=== PATIENT | female | born 1960 | race Caucasian/White ===

== ENCOUNTER 2023-03-24 15:57 | Inpatient (IN) ==
--- NOTE | 2023-03-24 16:26 | ED Triage Note ---
Date of Service March 24, 2023 History of Present Illness This patient was briefly evaluated while in triage. An abbreviated physical exam was performed. This patient is a 62-year-old Female who presents to the ED for evaluation of sciatica pain that started Wednesday. Pt. was seen here on Wednesday and states "they did not do anything." Pt. states she had 300mg gabapentin at the PCP office 1 hour ago. Physical Exam VITALS: Vitals are noted on the nurse's note and reviewed by myself. GENERAL: This is a 62 year old female, in no acute distress, nondiaphoretic, well-developed well-nourished. SKIN: No obvious rashes, edema, erythema HEAD: Normocephalic atraumatic. EYES: Conjunctivae without injection, sclerae without icterus. NECK: No JVD. LUNGS: No retractions or accessory muscle use. MUSCULOSKELETAL: Pt. threw herself from wheelchair to floor while nursing staff obtaining vital signs, noting laying on the floor is the only way she is able to be comfortable. Had no difficulty getting self into that position. NEURO: Patient was alert and oriented to person place and time. No focal neurological deficits. Initial orders for labs and / or imaging were placed and patient was placed in the waiting area until a bed is available. Please see further documentation for the full ED course. MDM / Impression Impression Impression: Back pain
[2023-03-24] MEDS ORDERED: oxyCODONE HCL IR 5 MG TAB (IMMEDIATE RELEASE) PO STA (16:27)
[2023-03-24] MEDS ORDERED: ACETAMINOPHEN 500 MG TAB PO STA (16:27)
[2023-03-24] MEDS ORDERED: ONDANSETRON 4 MG OD TAB PO STA (16:27)
[2023-03-24] MEDS ORDERED: KETOROLAC TROMETHAMINE 60 MG/2 ML VIAL IM STA (16:27)
[2023-03-24] MEDS ORDERED: CYCLOBENZAPRINE HCL 10 MG TAB PO STA (16:27)
--- NOTE | 2023-03-24 17:20 | CT Scan Report ---
CT lumbar spine wo con HISTORY: 62 years-old Female Back Pain kilo back pain without reported trauma COMPARISON: Lumbar spine radiographs 08/30/2022, 05/15/2012. TECHNIQUE: Multiple axial CT images of the lumbar spine were obtained without the use of IV contrast. A dose lowering technique was used consistent with the principals of CONOR. FINDINGS: Minimal superior endplate compression at L5 of less than 20% is new from the 2012 comparison. Moderat e multilevel spondylitic spurring and facet arthrosis. Posterior disc osteophyte complex at L2-L3. No definite acute fracture, subluxation or retropulsion identified. Moderate degeneration of the SI marina nts. The imaged intraabdominal and intrapelvic structures demonstrate no acute abnormality. L1-L2: Posterior annular disc bulge with ligamentum flavum thickening and severe facet arthrosis. Min imal central canal stenosis. Moderate with moderate left foraminal narrowing. L2-L3: Posterior disc osteophyte complex with ligamentum flavum thickening and moderate facet arthros is. Mild/moderate central canal stenosis with moderate to severe left and hmjs-fr-equnxoss right neur al foraminal narrowing. L3-L4: Posterior annular disc bulge with ligamentum flavum thickening and severe facet arthrosis. Mod erate central canal stenosis with severe left and moderate right foraminal narrowing. L4-L5: Posterior annular disc bulge with ligamentum thickening and moderate facet arthrosis. Small ce ntral disc protrusion. Nnnt-ck-ciydrlin central canal stenosis with moderate left and iefp-fk-dxhsyyg e right neural foraminal narrowing. L5-S1: Tiny posterior renal disc bulge with moderate facet arthrosis. Mild right with moderate left f oraminal narrowing. IMPRESSION: 1. No definite acute fracture or subluxation. 2. Less than 20% superior endplate compression at L5 is technically age indeterminate however is favo red to be chronic. 3. Discogenic degeneration with spondylotic spurring and facet arthrosis as above. ACT 112: Negative or not required by law. The above report was generated using voice recognition software. It may contain grammatical, syntax o r spelling errors. Electronically signed by: David Caraballo M.D. 03/24/2023 5:19 PM
[2023-03-24 17:38] LABS: Basophils # (auto) 0.05 K/uL (0.00-0.20); Basophils % (auto) 0.5 %; Eosinophils # (auto) 0.03 K/uL (0.00-0.50); Eosinophils % (auto) 0.3 %; Hematocrit (blood only) 45.6 % (37.0-47.0); Hemoglobin 16.8 g/dl (12.0-16.0); Immature Granulocytes # (auto) 0.05 K/uL (0.01-0.20); Immature Granulocytes % (auto) 0.5 %; Lymphocytes # (auto) 1.94 K/uL (1.20-3.40); Lymphocytes % (auto) 19.3 %; Mean Corpuscular Hemoglobin 31.1 pg (25.0-34.0); Mean Corpuscular Hgb Conc 36.8 g/dL (32.0-36.0); Mean Corpuscular Volume 84.3 fL (80.0-100.0); Monocytes # (auto) 0.96 K/uL (0.11-0.59); Monocytes % (auto) 9.5 %; Neutrophils # (auto) 7.03 K/uL (1.40-6.50); Neutrophils % (auto) 69.9 %; Platelet Count 298 K/uL (130-400); RDW Coefficient of Variation 12.3 % (11.5-14.5); RDW Standard Deviation 37.1 fL (36.4-46.3); Red Blood Count 5.41 M/uL (4.20-5.40); White Blood Count 10.06 K/ul (4.8-10.8)
[2023-03-24 17:56] LABS: Alanine Aminotransferase 18 U/L (7-52); Albumin Globulin Ratio 1.5 (0.9-2); Albumin Level 4.5 gm/dl (3.4-5.0); Alkaline Phosphatase 111 U/L (34-104); Anion Gap 12 (3-11); Aspartate Aminotransferase 16 U/L (13-39); BUN Creatinine Ratio 21.7 (10-20); Bilirubin,Total 1.2 mg/dl (0.2-1.0); Blood Urea Nitrogen 20 mg/dl (6-23); Calcium 9.7 mg/dl (8.6-10.3); Carbon Dioxide 22 mmol/L (21-32); Chloride 103 mmol/L (98-107); Est GFR (African American) 77.3 ml/min; Est GFR (Non-African American) 66.7 ml/min; Globulin 3.1 gm/dl (2.5-4.0); Glucose 216 mg/dl (70-99(Fasting)); Potassium 3.5 mmol/L (3.5-5.1); Sodium 137 mmol/L (136-145); Total Protein 7.6 gm/dl (6.0-8.3)
--- NOTE | 2023-03-24 19:05 | CT Scan Report ---
CT abd pelvis wo con CLINICAL HISTORY: low back pain TECHNIQUE: Helical axial images of the abdomen and pelvis were obtained. Automated dose lowering tech niques and/or adjustment according to patient size were utilized for this exam. This exam was perfor med without intravenous contrast. CT DOSE: 1417.02 mGy.cm COMPARISON: Comparison is made to CT abdomen pelvis 9 01/06/2020 FINDINGS: Lower chest: No acute abnormality. Liver: Unremarkable. No focal lesions are seen. Gallbladder and biliary tree: No calcified gallstones. Normal caliber wall. No intra- or extrahepatic biliary ductal dilation. Pancreas: Unremarkable, no focal lesions. Spleen: Unremarkable. Adrenals: Unremarkable. Kidneys and ureters: Unremarkable. Bladder: Unremarkable. Reproductive organs: Unremarkable. Bowel: Postsurgical changes are seen in the colon. Lymph nodes Retroperitoneal: Unremarkable. Pelvic: Unremarkable. Mesenteric: Unremarkable. Peritoneum: Normal. Vessels: Unremarkable. Abdominal wall: A supraumbilical fat-containing hernia noted. Bones: Degenerative changes in the visualized spine. IMPRESSION: No acute abnormalities to explain back pain. ACT 112: Negative or not required by law. Electronically signed by: Jose García M.D. 03/24/2023 7:03 PM
--- NOTE | 2023-03-24 22:17 | Emergency Department Note ---
Impression & Plan Back pain, Lumbar radiculopathy, Hypertension ED Provider Note ED Provider Note NAME: KEITH MCCAIN AGE:62 SEX: Female : 1960 ARRIVES VIA: private vehicle INFORMANT: Patient ED PROVIDER(s): Ivonne Torres DO CHIEF COMPLAINT: back pain HPI: This is a 62-year-old female presents emergency department due to concern for back pain which started over the weekend. Patient does have a prior history of back and neck problems and has previously had surgery from Dr. Banda. Patient denies any coming fevers or chills. She denies any change in urine or stools. She denies any saddle anesthesia. Patient states she has had prior sciatica on the right, however this time she feels pain on the left. She states the pain is worse in her left hip and left thigh. She states she was seen and evaluated yesterday and given Percocet, Flexeril, and steroids. She then followed up with her PCP today and was given additional gabapentin. Patient states she is taking all of this and it is not helping. She states she was hoping to try and get pain medication and follow-up with her chiropractor as well as with Dr. Banda but the pain is so severe that she has been unable to walk. PAST MEDICAL HISTORY:See Below PAST SURGICAL HISTORY:See Below FAMILY HISTORY:See Below SOCIAL HISTORY:See Below HOME MEDICATIONS:See Below ALLERGIES:See Below VITALS:See Below PHYSICAL EXAMINATION: GENERAL: alert, uncomfortable appearing, well nourished, mild distress, non- toxic EYE EXAM: normal conjunctiva, PERRL and EOM's grossly intact OROPHARYNX: no exudate, no erythema, lips, buccal mucosa, and tongue normal and mucous membranes are moist NECK: supple, no nuchal rigidity, no adenopathy, non-tender LUNGS: Clear to auscultation. Normal chest wall mechanics, no w/r/r HEART: no murmurs, S1 normal and S2 normal ABDOMEN: abdomen soft, non-tender, normo-active bowel sounds, no masses, no rebound or guarding. BACK: Back is symmetrical on inspection and there is no deformity, no midline tenderness, no CVA tenderness. SKIN: no rashes, petechiae, orbruising UPPER EXTREMITIES: upper extremities are grossly normal. FROM, nml pulses b/l. LOWER EXTREMITIES: No pitting edema. FROM, nml pulses b/l. No pain with palpation over the left hip, anterior proximal left lower extremity is tender with palpation. No other evidence of trauma or deformity to the lower extremities. NEURO EXAM: Normal sensorium, cranial nerves II-XII grossly intact, normal speech, no facial droop,nogross weakness of arms, no gross weakness of legs. Gross sensation intact. No ataxia. Vital Signs: reviewed and remarkable Differential Diagnosis: lumbar radiculopathy, muscle strain, facture, cauda equina, mass, disc herniation, UTI, renal colic, as well as others were considered MEDICAL DECISION MAKING: This is a 62-year-old female who presents due to concern for worsening back pain despite recent evaluation and medications being given here as well as additional medications by her PCP. Patient afebrile and vital signs stable. Patient was sent for CT imaging prior to my evaluation. I did review these results with her at bedside. Patient given additional IV medications including alternative muscle relaxer, IV Dilaudid, IV fluids, and Lidoderm patch. Patient did have some improvement but still was unable to walk. Due to concern for pain and inability to control symptoms on oral medication she can take at home, case discussed with hospitalist team for additional evaluation and management. UA was pending at the time of this discussion however the low suspicion for occult UTI/pyelonephritis. Patient was noted to have significant hypertension here, I feel this is mostly tied to her pain. I do not suspect occult vascular etiology of her back and leg pain. Consultation(s): 0055: Discussed with Dr. Charlton, [facility] hospitalist team. UA pending at this time. ER Treatment Provided: See below Diagnostics Interpreted By Me: -ECG: [] -Cardiac Monitoring: An order was placed for continuous cardiac monitoring. The monitor shows a rate of 66 with normal sinus rhythm. -Laboratory studies: As stated above and show below. -Imaging studies: [] Triage Nursing Note Reviewed Prior/Outside Records Reviewed Past Med/Surg History Medical History ADHD Anxiety Depression Diabetes Hypertension Surgical History History of partial colectomy S/P cervical spinal fusion Social History Smoking Status: Never smoker Tobacco Type: Cigarettes Preferred Language: Bulgarian Hearing Ability: Normal current occupational status: employed Feels Safe at Home: Yes Allergies Allergies Allergy/AdvReac Type Severity Reaction Status Date / Time amoxicillin Allergy Intermediate RASH Verified 03/24/23 23:13 Sulfa (Sulfonamide Allergy Intermediate Rash Verified 03/24/23 23:13 Antibiotics) oxycodone AdvReac Intermediate N&V Verified 03/24/23 23:13 Home Meds Home Medications Medication Instructions Recorded Confirmed amlodipine 10 mg tablet 10 mg PO QAM 03/24/23 03/24/23 bupropion HCl 150 mg 24 hr tablet, 150 mg PO QAM 03/24/23 03/24/23 extended release cyclobenzaprine 5 mg tablet 5 mg PO TID 03/24/23 03/24/23 dextroamphetamine-amphetamine 10 10 mg PO QPM PRN ADHD SYMPTOMS 03/24/23 03/24/23 mg tablet dextroamphetamine-amphetamine ER 50 mg PO QAM 03/24/23 03/24/23 25 mg 24hr capsule,extend release diazepam 5 mg tablet 5 - 10 mg PO DAILY PRN SEVERE 03/24/23 03/24/23 ANXIETY escitalopram oxalate 20 mg tablet 20 mg PO QAM 03/24/23 03/24/23 glimepiride 2 mg tablet 2 mg PO DAILYBB 03/24/23 03/24/23 prednisone 20 mg tablet 40 mg PO DAILY 03/24/23 03/24/23 Previous Rx's Medication Instructions Recorded methylprednisolone 4 mg tablets in 4 mg PO DIRECTED #21 ea 03/21/23 a dose pack (Methylpred DP) Results & Data (ED) Vital Signs Vital Signs - 24 hr 03/24/23 16:24 03/24/23 22:01 03/24/23 22:01 Temperature 36.6 C 36.8 C Temperature Source Temporal Artery Scan Oral Pulse Rate 77 66 Pulse Rate [Apical] 66 Pulse Rhythm Regular Pulse Rhythm [Apical] Regular Pulse Strength [Apical] Normal Respiratory Rate 16 20 19 Respiratory Effort / Characteristics Non-Labored Non-Labored Spontaneous Respiratory Depth Normal Normal Respiratory Pattern Regular Blood Pressure 180/80 H Blood Pressure [Right Arm] 192/98 H Blood Pressure Mean 113 Blood Pressure Mean [Right Arm] 129 Blood Pressure Position [Right Arm] Lying Pulse Oximetry 99 97 98 Oxygen Delivery Method Room Air Room Air Room Air Sepsis Recent Fever Within 48 Hours No Sepsis New/Unexplained Change in Mental Status No Sepsis Action Taken by Nursing No Action Required 03/24/23 22:06 Temperature Temperature Source Pulse Rate 68 Pulse Rate [Apical] Pulse Rhythm Pulse Rhythm [Apical] Pulse Strength [Apical] Respiratory Rate Respiratory Effort / Characteristics Respiratory Depth Respiratory Pattern Blood Pressure Blood Pressure [Right Arm] Blood Pressure Mean Blood Pressure Mean [Right Arm] Blood Pressure Position [Right Arm] Pulse Oximetry Oxygen Delivery Method Sepsis Recent Fever Within 48 Hours Sepsis New/Unexplained Change in Mental Status Sepsis Action Taken by Nursing Laboratory Data 03/24/23 17:16 03/24/23 17:16 Lab Results 03/24/23 03/24/23 Range/Units 17:16 17:16 WBC 10.06 (4.8-10.8) K/ul RBC 5.41 H (4.20-5.40) M/uL Hgb 16.8 H (12.0-16.0) g/dl Hct 45.6 (37.0-47.0) % MCV 84.3 (80.0-100.0) fL MCH 31.1 (25.0-34.0) pg MCHC 36.8 H (32.0-36.0) g/dL RDW Std Deviation 37.1 (36.4-46.3) fL RDW Coeff of Ethan 12.3 (11.5-14.5) % Plt Count 298 (130-400) K/uL MPV 11.0 (9.4-12.4) fL Immature Gran % (Auto) 0.5 % Neut % (Auto) 69.9 % Lymph % (Auto) 19.3 % Haakon % (Auto) 9.5 % Eos % (Auto) 0.3 % Baso % (Auto) 0.5 % Neut # (Auto) 7.03 H (1.40-6.50) K/uL Lymph # (Auto) 1.94 (1.20-3.40) K/uL Haakon # (Auto) 0.96 H (0.11-0.59) K/uL Eos # (Auto) 0.03 (0.00-0.50) K/uL Baso # (Auto) 0.05 (0.00-0.20) K/uL Immature Gran # (Auto) 0.05 (0.01-0.20) K/uL Sodium 137 (136-145) mmol/L Potassium 3.5 (3.5-5.1) mmol/L Chloride 103 (98-107) mmol/L Carbon Dioxide 22 (21-32) mmol/L Anion Gap 12 H (3-11) BUN 20 (6-23) mg/dl Creatinine 0.92 (0.6-1.2) mg/dl Est Cr Clr Drug Dosing Not Reportable Est GFR ( Amer) 77.3 ml/min Est GFR (Non-Af Amer) 66.7 ml/min BUN/Creatinine Ratio 21.7 H (10-20) Glucose 216 H (70-99(Fasting)) mg/dl Calcium 9.7 (8.6-10.3) mg/dl Total Bilirubin 1.2 H (0.2-1.0) mg/dl AST 16 (13-39) U/L ALT 18 (7-52) U/L Alkaline Phosphatase 111 H (34-104) U/L Total Protein 7.6 (6.0-8.3) gm/dl Albumin 4.5 (3.4-5.0) gm/dl Globulin 3.1 (2.5-4.0) gm/dl Albumin/Globulin Ratio 1.5 (0.9-2) Administered Medications Lactated Ringer's (Lr) 1,000 mls @ 50 mls/hr IV .Q20H ONE Stop: 03/25/23 21:23 Last Admin: 03/25/23 01:44 Dose: 50 mls/hr Documented By: MED Morphine Sulfate (Morphine Sulfate 4 Mg/Ml 1 Ml Carp\Vial) 4 mg IV Q4H PRN PRN Reason: Pain Stop: 04/08/23 01:05 Last Admin: 03/25/23 01:36 Dose: 4 mg Documented By: MED Discontinued Medications Acetaminophen (Acetaminophen 500 Mg Tab) 1,000 mg PO NOW STA Stop: 03/24/23 16:28 Last Admin: 03/24/23 17:25 Dose: 1,000 mg Documented By: AM Amlodipine Besylate (Amlodipine Besylate 5 Mg Tab) 10 mg PO NOW ONE Stop: 03/25/23 00:57 Last Admin: 03/25/23 01:28 Dose: 10 mg Documented By: KAUSHAL Cyclobenzaprine HCl (Cyclobenzaprine Hcl 10 Mg Tab) 10 mg PO NOW STA Stop: 03/24/23 16:28 Last Admin: 03/24/23 17:25 Dose: 10 mg Documented By: DIAN Hydromorphone HCl (Hydromorphone Inj 1 Mg/Ml Syringe) 1 mg IV NOW STA Stop: 03/24/23 22:23 Last Admin: 03/24/23 22:48 Dose: 1 mg Documented By: ISREAL Sodium Chloride (Nss) 1,000 mls @ 999 mls/hr IV .Q1H1M ONE Stop: 03/24/23 23:22 Last Infusion: 03/25/23 00:32 Dose: 0 mls/hr Documented By: metrology technician: 03/24/23 22:48 Dose: 999 mls/hr Documented By: ISREAL Ketorolac Tromethamine (Ketorolac Tromethamine 60 Mg/2 Ml Vial) 60 mg IM NOW STA Stop: 03/24/23 16:28 Last Admin: 03/24/23 17:21 Dose: 60 mg Documented By: DIAN Lidocaine (Lidocaine 5% 1 Patch) 1 patch TD NOW ONE Stop: 03/25/23 01:01 Last Admin: 03/25/23 01:30 Dose: 1 patch Documented By: KAUSHAL Methocarbamol (Methocarbamol 500 Mg Tablet) 500 mg PO NOW STA Stop: 03/24/23 22:23 Last Admin: 03/24/23 22:48 Dose: 500 mg Documented By: ISREAL Ondansetron HCl (Ondansetron 4 Mg Od Tab) 4 mg PO NOW STA Stop: 03/24/23 16:28 Last Admin: 03/24/23 17:21 Dose: 4 mg Documented By: AM Oxycodone HCl (Oxycodone Hcl Ir 5 Mg Tab (Immediate Release)) 5 mg PO NOW STA Stop: 03/24/23 16:28 Last Admin: 03/24/23 17:24 Dose: 5 mg Documented By: DIAN Imaging Data Radiologist's Impression: Lumbar Spine CT 03/24/23 16:28 CT lumbar spine wo con HISTORY: 62 years-old Female Back Pain kilo back pain without reported trauma COMPARISON: Lumbar spine radiographs 08/30/2022, 05/15/2012. TECHNIQUE: Multiple axial CT images of the lumbar spine were obtained without the use of IV contrast. A dose lowering technique was used consistent with the principals of ALARA. FINDINGS: Minimal superior endplate compression at L5 of less than 20% is new from the 2011 comparison. Moderate multilevel spondylitic spurring and facet arthrosis. Posterior disc osteophyte complex at L2-L3. No definite acute fracture, subluxation or retropulsion identified. Moderate degeneration of the SI joints. The imaged intraabdominal and intrapelvic structures demonstrate no acute abnormality. L1-L2: Posterior annular disc bulge with ligamentum flavum thickening and severe facet arthrosis. Minimal central canal stenosis. Moderate with moderate left foraminal narrowing. L2-L3: Posterior disc osteophyte complex with ligamentum flavum thickening and moderate facet arthrosis. Mild/moderate central canal stenosis with moderate to severe left and qhyb-sp-fqjopyij right neural foraminal narrowing. L3-L4: Posterior annular disc bulge with ligamentum flavum thickening and severe facet arthrosis. Moderate central canal stenosis with severe left and moderate right foraminal narrowing. L4-L5: Posterior annular disc bulge with ligamentum thickening and moderate facet arthrosis. Small central disc protrusion. Kird-lt-alzofcvn central canal stenosis with moderate left and qhdq-xd-aaeraplu right neural foraminal narrowing. L5-S1: Tiny posterior renal disc bulge with moderate facet arthrosis. Mild right with moderate left foraminal narrowing. IMPRESSION: 1. No definite acute fracture or subluxation. 2. Less than 20% superior endplate compression at L5 is technically age indeterminate however is favored to be chronic. 3. Discogenic degeneration with spondylotic spurring and facet arthrosis as above. ACT 112: Negative or not required by law. The above report was generated using voice recognition software. It may contain grammatical, syntax or spelling errors. Electronically signed by: David Caraballo M.D. 03/24/2023 5:19 PM Abdomen/Pelvis CT 03/24/23 17:38 CT abd pelvis wo con CLINICAL HISTORY: low back pain TECHNIQUE: Helical axial images of the abdomen and pelvis were obtained. Automated dose lowering techniques and/or adjustment according to patient size were utilized for this exam. This exam was performed without intravenous contrast. CT DOSE: 1417.02 mGy.cm COMPARISON: Comparison is made to CT abdomen pelvis 9 01/06/2020 FINDINGS: Lower chest: No acute abnormality. Liver: Unremarkable. No focal lesions are seen. Gallbladder and biliary tree: No calcified gallstones. Normal caliber wall. No intra- or extrahepatic biliary ductal dilation. Pancreas: Unremarkable, no focal lesions. Spleen: Unremarkable. Adrenals: Unremarkable. Kidneys and ureters: Unremarkable. Bladder: Unremarkable. Reproductive organs: Unremarkable. Bowel: Postsurgical changes are seen in the colon. Lymph nodes Retroperitoneal: Unremarkable. Pelvic: Unremarkable. Mesenteric: Unremarkable. Peritoneum: Normal. Vessels: Unremarkable. Abdominal wall: A supraumbilical fat-containing hernia noted. Bones: Degenerative changes in the visualized spine. IMPRESSION: No acute abnormalities to explain back pain. ACT 112: Negative or not required by law. Electronically signed by: Jose García M.D. 03/24/2023 7:03 PM Discharge Plan Visit Data Chief Complaint: Back Injury/Pain Stated Complaint: BACK PAIN ED Provider: Ivonne Torres Discharge Problem: Back pain, Lumbar radiculopathy, Hypertension Discharge Instructions Interventions: ED Discharge Assessment Last Done: 03/25/23 01:45
[2023-03-24] MEDS ORDERED: SODIUM CHLORIDE 0.9% 1,000 ML IV ONE (22:22)
[2023-03-24] MEDS ORDERED: HYDROmorphone INJ 1 MG/ML SYRINGE IV STA (22:22)
[2023-03-24] MEDS ORDERED: METHOCARBAMOL 500 MG TABLET PO STA (22:22)
[2023-03-25] MEDS ORDERED: amLODIPine BESYLATE 5 MG TAB PO ONE (00:56)
[2023-03-25] MEDS ORDERED: LIDOCAINE 5% 1 PATCH TD ONE (01:00)
[2023-03-25] MEDS ORDERED: oxyCODONE HCL IR 5 MG TAB (IMMEDIATE RELEASE) PO PRN (01:05)
[2023-03-25] MEDS ORDERED: PROMETHAZINE HCL 12.5 MG in SODIUM CHLORIDE 0.9% 50 ML IV PRN (01:06)
[2023-03-25] MEDS ORDERED: ACETAMINOPHEN 325 MG TAB PO PRN (01:06)
[2023-03-25] MEDS ORDERED: LORazepam 0.5 MG TAB PO PRN (01:06)
[2023-03-25] MEDS ORDERED: LACTATED RINGER'S 1,000 ML IV ONE (01:24)
--- NOTE | 2023-03-25 01:24 | History & Physical Report ---
Date of Service March 25, 2023 Assessment & Plan (1) Lumbar radiculopathy: Plan: Intractable pain hypertension, markedly elevated upon arrival at the ER DM2 on oral medications, reasonable control as of remote hemoglobin A1c of 7.18 April 2020 hx ADD, anxiety/mood disorder, at baseline OBS GMF Analgesia Lumbar MRI Orthopedic spine consult Re: Intractable back pain Hold steroid Rx seen by orthopedics, patient claims medication ineffective Basal bolus insulin, ISS BG goal 1 10-1 40, carb count coverage, update hemoglobin A1c DVT prophylaxis. SCDs Re: Possible procedure Full code Text document was generated using cheerapp voice recognition software. It may contain grammatical or spelling errors. Kindly contact undersigned for clarification of any documentation item in question. History of Present Illness Chief Complaint: uncontrolled back pain Primary Care Provider: Mey Knapp DO History obtained from patient and records. Medical history significant for hypertension, DM2 on oral medications, ADD, anxiety/mood disorder. Last confinement 2012 under Orthopedics spine service for elective cervical spine surgery. Patient seen at the ER 4 days ago for low back pain radiation to left upper leg of 1 day duration. No fever, no chills. No weakness. No incontinence symptoms. No trauma. Patient thinks she was sitting too long behind the computer due to work issues. Impression was sciatica. Patient discharged on Medrol and cyclobenzaprine course which did not help pain. PCP contemplated outpatient lumbar MRI. Patient return to ER for worsening symptoms. Patient denies headache, chest pain, SOB. 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 Allergies Allergy/AdvReac Type Severity Reaction Status Date / Time amoxicillin Allergy Intermediate RASH Verified 03/24/23 23:13 Sulfa (Sulfonamide Allergy Intermediate Rash Verified 03/24/23 23:13 Antibiotics) oxycodone AdvReac Intermediate N&V Verified 03/24/23 23:13 Home Medications Medication Instructions Recorded Confirmed Type methylprednisolone 4 mg tablets in 4 mg PO DIRECTED #21 ea 03/21/23 03/24/23 Rx a dose pack (Methylpred DP) amlodipine 10 mg tablet 10 mg PO QAM 03/24/23 03/24/23 History bupropion HCl 150 mg 24 hr tablet, 150 mg PO QAM 03/24/23 03/24/23 History extended release cyclobenzaprine 5 mg tablet 5 mg PO TID 03/24/23 03/24/23 History dextroamphetamine-amphetamine 10 10 mg PO QPM PRN ADHD SYMPTOMS 03/24/23 03/24/23 History mg tablet dextroamphetamine-amphetamine ER 50 mg PO QAM 03/24/23 03/24/23 History 25 mg 24hr capsule,extend release diazepam 5 mg tablet 5 - 10 mg PO DAILY PRN SEVERE 03/24/23 03/24/23 History ANXIETY escitalopram oxalate 20 mg tablet 20 mg PO QAM 03/24/23 03/24/23 History glimepiride 2 mg tablet 2 mg PO DAILYBB 03/24/23 03/24/23 History prednisone 20 mg tablet 40 mg PO DAILY 03/24/23 03/24/23 History Past Med/Surg History Medical History ADHD Anxiety Depression Diabetes Hypertension Surgical History History of partial colectomy S/P cervical spinal fusion Social History Smoking Status: Never smoker Tobacco Type: Cigarettes Preferred Language: Niuean Hearing Ability: Normal current occupational status: employed Feels Safe at Home: Yes Review of Systems Review of Systems: As per HPI, all other systems reviewed and negative Physical Exam Physical Exam: GENERAL: uncomfortable, obese, no respiratory distress SKIN: Normal color, warm HEENT: [place] palpebral conjunctivae, no ptosis, dry buccal mucosa NECK : Supple, short neck, no tenderness CHEST : CTA, no tenderness HEART : RRR, no obvious murmurs ABDOMEN: Some distention, nontender BACK : Low back tenderness, negative SLR EXTREMITIES : Minimal LE swelling, no LE tenderness, no other conspicuous deformities noted NEUROLOGIC : Coherent, no facial asymmetry, no other gross focality Results & Data Results & Data Vital Signs (Past 12 Hours) Vital Signs Temp Pulse Pulse Resp BP BP Pulse Ox 03/24/23 22:06 68 03/24/23 22:01 66 19 98 03/24/23 22:01 36.8 C 66 20 192/98 H 97 03/24/23 16:24 36.6 C 77 16 180/80 H 99 O2 Del Method 03/24/23 22:06 03/24/23 22:01 Room Air 03/24/23 22:01 Room Air 03/24/23 16:24 Room Air Laboratory Results Laboratory Results WBC 10.06 K/ul (4.8-10.8) 03/24/23 17:16 RBC 5.41 M/uL (4.20-5.40) H 03/24/23 17:16 Hgb 16.8 g/dl (12.0-16.0) H 03/24/23 17:16 Hct 45.6 % (37.0-47.0) 03/24/23 17:16 MCV 84.3 fL (80.0-100.0) 03/24/23 17:16 MCH 31.1 pg (25.0-34.0) 03/24/23 17:16 MCHC 36.8 g/dL (32.0-36.0) H 03/24/23 17:16 RDW Std Deviation 37.1 fL (36.4-46.3) 03/24/23 17:16 RDW Coeff of Ethan 12.3 % (11.5-14.5) 03/24/23 17:16 Plt Count 298 K/uL (130-400) 03/24/23 17:16 MPV 11.0 fL (9.4-12.4) 03/24/23 17:16 Immature Gran % (Auto) 0.5 % 03/24/23 17:16 Neut % (Auto) 69.9 % 03/24/23 17:16 Lymph % (Auto) 19.3 % 03/24/23 17:16 [place] % (Auto) 9.5 % 03/24/23 17:16 Eos % (Auto) 0.3 % 03/24/23 17:16 Baso % (Auto) 0.5 % 03/24/23 17:16 Neut # (Auto) 7.03 K/uL (1.40-6.50) H 03/24/23 17:16 Lymph # (Auto) 1.94 K/uL (1.20-3.40) 03/24/23 17:16 [place] # (Auto) 0.96 K/uL (0.11-0.59) H 03/24/23 17:16 Eos # (Auto) 0.03 K/uL (0.00-0.50) 03/24/23 17:16 Baso # (Auto) 0.05 K/uL (0.00-0.20) 03/24/23 17:16 Immature Gran # (Auto) 0.05 K/uL (0.01-0.20) 03/24/23 17:16 Sodium 137 mmol/L (136-145) 03/24/23 17:16 Potassium 3.5 mmol/L (3.5-5.1) 03/24/23 17:16 Chloride 103 mmol/L (98-107) 03/24/23 17:16 Carbon Dioxide 22 mmol/L (21-32) 03/24/23 17:16 Anion Gap 12 (3-11) H 03/24/23 17:16 BUN 20 mg/dl (6-23) 03/24/23 17:16 Creatinine 0.92 mg/dl (0.6-1.2) 03/24/23 17:16 Est Cr Clr Drug Dosing Not Reportable 03/24/23 17:16 Est GFR ( Amer) 77.3 ml/min 03/24/23 17:16 Est GFR (Non-Af Amer) 66.7 ml/min 03/24/23 17:16 BUN/Creatinine Ratio 21.7 (10-20) H 03/24/23 17:16 Glucose 216 mg/dl (70-99(Fasting)) H 03/24/23 17:16 Calcium 9.7 mg/dl (8.6-10.3) 03/24/23 17:16 Total Bilirubin 1.2 mg/dl (0.2-1.0) H 03/24/23 17:16 AST 16 U/L (13-39) 03/24/23 17:16 ALT 18 U/L (7-52) 03/24/23 17:16 Alkaline Phosphatase 111 U/L (34-104) H 03/24/23 17:16 Total Protein 7.6 gm/dl (6.0-8.3) 03/24/23 17:16 Albumin 4.5 gm/dl (3.4-5.0) 03/24/23 17:16 Globulin 3.1 gm/dl (2.5-4.0) 03/24/23 17:16 Albumin/Globulin Ratio 1.5 (0.9-2) 03/24/23 17:[address] 03/24/23 16:28 CT lumbar spine wo con HISTORY: 62 years-old Female Back Pain kilo back pain without reported trauma COMPARISON: Lumbar spine radiographs 08/30/2022, 05/15/2012. TECHNIQUE: Multiple axial CT images of the lumbar spine were obtained without the use of IV contrast. A dose lowering technique was used consistent with the principals of ALA. FINDINGS: Minimal superior endplate compression at L5 of less than 20% is new from the 2012 comparison. Moderate multilevel spondylitic spurring and facet arthrosis. Posterior disc osteophyte complex at L2-L3. No definite acute fracture, subluxation or retropulsion identified. Moderate degeneration of the SI joints. The imaged intraabdominal and intrapelvic structures demonstrate no acute abnormality. L1-L2: Posterior annular disc bulge with ligamentum flavum thickening and severe facet arthrosis. Minimal central canal stenosis. Moderate with moderate left foraminal narrowing. L2-L3: Posterior disc osteophyte complex with ligamentum flavum thickening and moderate facet arthrosis. Mild/moderate central canal stenosis with moderate to severe left and [id number] right neural foraminal narrowing. L3-L4: Posterior annular disc bulge with ligamentum flavum thickening and severe facet arthrosis. Moderate central canal stenosis with severe left and moderate right foraminal narrowing. L4-L5: Posterior annular disc bulge with ligamentum thickening and moderate fac et arthrosis. Small central disc protrusion. [id number] central canal stenosis with moderate left and wefj-kn-zgzmbagr right neural foraminal narrowing. L5-S1: Tiny posterior renal disc bulge with moderate facet arthrosis. Mild right with moderate left foraminal narrowing. IMPRESSION: 1. No definite acute fracture or subluxation. 2. Less than 20% superior endplate compression at L5 is technically age indeterminate however is favored to be chronic. 3. Discogenic degeneration with spondylotic spurring and facet arthrosis as above. ACT 112: Negative or not required by law. The above report was generated using voice recognition software. It may contain grammatical, syntax or spelling errors. Electronically signed by: David Caraballo M.D. 03/24/2023 5:19 PM Abdomen/Pelvis CT 03/24/23 17:38 CT abd pelvis wo con CLINICAL HISTORY: low back pain TECHNIQUE: Helical axial images of the abdomen and pelvis were obtained. Automated dose lowering techniques and/or adjustment according to patient size were utilized for this exam. This exam was performed without intravenous contrast. CT DOSE: 1417.02 mGy.cm COMPARISON: Comparison is made to CT abdomen pelvis 9 01/06/2020 FINDINGS: Lower chest: No acute abnormality. Liver: Unremarkable. No focal lesions are seen. Gallbladder and biliary tree: No calcified gallstones. Normal caliber wall. No intra- or extrahepatic biliary ductal dilation. Pancreas: Unremarkable, no focal lesions. Spleen: Unremarkable. Adrenals: Unremarkable. Kidneys and ureters: Unremarkable. Bladder: Unremarkable. Reproductive organs: Unremarkable. Bowel: Postsurgical changes are seen in the colon. Lymph nodes Retroperitoneal: Unremarkable. Pelvic: Unremarkable. Mesenteric: Unremarkable. Peritoneum: Normal. Vessels: Unremarkable. Abdominal wall: A supraumbilical fat-containing hernia noted. Bones: Degenerative changes in the visualized spine. IMPRESSION: No acute abnormalities to explain back pain. ACT 112: Negative or not required by law. Electronically signed by: Jose García M.D. 03/24/2023 7:03 PM Diagnostic Findings EKG as per my interpretation : Rate 65, NSR, normal axis, no ischemia
[2023-03-25] MEDS: MoRPHine SULFATE 4 MG/ML 1 ML CARP\\VIAL IV PRN ×5 (01:36→20:03)
[2023-03-25] MEDS ORDERED: DEXTROSE 50% 50 ML SYRINGE IV PRN (01:45)
[2023-03-25] MEDS ORDERED: GLUCAGON FOR INJ 1 MG VIAL SQ PRN (01:45)
[2023-03-25] MEDS ORDERED: LANTUS PER UNIT CHARGE SQ SCH (01:45)
[2023-03-25] MEDS ORDERED: CARBOHYDRATES FOR HYPOGLYCEMIA PO PRN (01:45)
[2023-03-25] MEDS ORDERED: GLUCOSE 40% GEL 15 GM TUBE PO PRN (01:45)
[2023-03-25] MEDS ORDERED: GLUCOSE 10 TAB/TUBE PO PRN (01:45)
[2023-03-25] MEDS: INSULIN ASPART PER UNIT CHARGE SC SCH ×5 (03:42→20:38)
--- NOTE | 2023-03-25 04:17 | Magnetic Resonance Report ---
Exam(s): MRI L SPINE Without Contrast EXAM: MR Lumbar Spine Without Intravenous Contrast CLINICAL HISTORY: Reason for exam: intractable back pain. TECHNIQUE: Magnetic resonance images of the lumbar spine without intravenous contrast in multiple planes. COMPARISON: Comparison made to prior CT scan of the lumbar spine from March 24, 2023. FINDINGS: Vertebrae: There are 5 lumbar type vertebral bodies with a mild generalized curve to the right and normal lumbar lordosis. There is subtle loss of left vertebral body height at the L5 segment with mild bone marrow edema concerning for minimally displaced fracture 8% loss of vertebral body height. Otherwise, there is normal vertebral body height and alignment. There is subtle bone marrow edema at the superior endplate of the right groin for segment. There is a small Schmorl's node at the superior endplate of L5. There is moderate right and mild left sacroiliac joint arthropathy. Spinal cord: The conus is normal in size, shape and signal characteristics, terminating at night L1-2. Soft tissues: There is advanced atrophy of the iliopsoas, paraspinous and intraspinous musculature. The aorta and IVC flow voids are intact. The visualized kidneys are unremarkable. There is increased fluid signal within the L4-5 and L5-S1 interspinous bursa. DISCS/SPINAL CANAL/NEURAL FORAMINA: L1-L2: There is mild disc degeneration with annular disc bulge causing mild subarticular recess stenosis, disc extending to the neural foramina without evidence of impingement or significant stenosis. There is mild facet joint arthropathy with mild cellulitis. L2-L3: Moderate disc degeneration with annular disc bulge asymmetric to the left causing a mild left subarticular recess stenosis with disc extending into the neuroforamina causing a mild left stenosis without evidence of neural impingement. There is mild facet arthropathy with mild synovitis. L3-L4: Moderate disc degeneration with annular disc bulge asymmetric to the left causing a mild subarticular recess stenosis and mild spinal canal stenosis. There is disc extending to the neuroforamina causing mild bilateral neuroforaminal stenosis without evidence of neural impingement. There is mild facet joint arthropathy with mild synovitis. L4-L5: Mild disc degeneration with annular disc bulge causing a mild subarticular recess stenosis with disc extending into the neural foramina without evidence of impingement or significant stenosis. There is mild facet joint arthropathy with mild synovitis. L5-S1: Intervertebral disc is normal. There is mild facet arthropathy in length mild synovitis. IMPRESSION: 1. Findings concerning for a minimally displaced superior endplate fracture of the L5 vertebral body. 2. Moderate disc degeneration at L2-3 and L3-4 with mild disc degeneration at L1-L2 and L4-5 with annular disc bulging causing a mild subarticular recess stenosis without evidence of neural impingement. 3. There is mild spinal canal stenosis at L3-4. 4. There is a mild left L2-3, and mild bilateral L3-4 without evidence of neural impingement. 5. There is mild facet arthropathy with mild synovitis. 6. Intraspinous bursitis at L4-5 and L5-S1. 7. Moderate right and mild left sacroiliac joint arthropathy. 8. No evidence of infection, tumor or arachnoiditis. Electronically signed by: Celia Vivar MD 03/25/23 04:16 AM
[2023-03-25 04:20] LABS: Appearance Urine Cloudy (Clear); Bacteria Urine Automated Negative (Negative); Bilirubin Urine Negative (Negative); Blood Urine Negative (Negative); Color Urine Yellow; Epithelial Cell Urine Auto >30 /lpf (0-5); Glucose Urine UA Trace (Negative); Ketones Urine Negative (Negative); Leukocyte Esterase Urine 2+ (Negative); Nitrite Urine Negative (Negative); Protein Urine Negative (Negative); Specific Gravity Urine 1.026 (1.000-1.030); Urobilinogen Urine Negative (Negative); WBC Urine Automated >30 /hpf (0-5); pH Urine 5.5 (4.5-7.5)
[2023-03-25 04:43] LABS: Calcium Oxalate Crystals Urine Present (None Prsent); Cast Urine Automated 0 /lpf (0-5); Renal Epithelial Cells Urine 0-5 /lpf (0-5)
[2023-03-25 07:23] LABS: Estimated Average Glucose 200 mg/dl; Hemoglobin A1C 8.6 % (4.5-5.6)
[2023-03-25] MEDS: CYCLOBENZAPRINE HCL 5 MG TAB PO SCH ×3 (08:14→19:53)
[2023-03-25] MEDS: ESCITALOPRAM OXALATE 20 MG TAB PO SCH (08:15)
[2023-03-25] MEDS: buPROPion XL 150 MG TABCR PO SCH (08:15)
[2023-03-25] MEDS: DEXTROAMPHETAMINE/AMPHETAMINE ER 10 MG CAP PO SCH (08:21)
--- NOTE | 2023-03-25 08:43 | Orthopedic Consultation ---
Date of Consultation March 25, 2023 Assessment & Plan (1) Lumbar disc herniation with radiculopathy: MRI lumbar spine performed yesterday available for review. Demonstrates degenerative disc disease with Modic changes L2-L3. There is evidence of a foraminal extraforaminal disc herniation L2-L3 on the left. This is creating significant irritation of the exiting L2 nerve root consistent with her clinical presentation. There is some modest stenosis with hypertrophy L3-L4 with a foraminal component of stenosis. All other levels are relatively benign. Assessment foraminal extraforaminal disc herniation L2 radiculopathy L2-L3. This has not been described by the radiologist. I discussed with the patient possible treatment options which include medical management and interventional pain management or surgery. Surgery require disc excision and facetectomy and possible fusion L2-L3. She would like to have a consultation with interventional pain management. We will follow her throughout her stay. History of Present Illness Reason for Consultation: Severe left leg pain Attending Physician: Hans Wright MD History of Present Illness This is a 62-year-old female that presents with approximate 4 days of severe left anterior thigh pain. It radiates down the anterior thigh but not below the knee. She denies any specific trauma fall or event. The right lower extremity asymptomatic. She notes increased pain with even motion to the right lower extremity rating into the left lower extremity. Is markedly limited her ability to stand and ambulate. She is hypersensitive to even modest touch to the left thigh. Pain medication is providing little to no relief. Allergies Allergy/AdvReac Type Severity Reaction Status Date / Time amoxicillin Allergy Intermediate RASH Verified 03/24/23 23:13 Sulfa (Sulfonamide Allergy Intermediate Rash Verified 03/24/23 23:13 Antibiotics) oxycodone AdvReac Intermediate N&V Verified 03/24/23 23:13 Home Medications Medication Instructions Recorded Confirmed Type methylprednisolone 4 mg tablets in 4 mg PO DIRECTED #21 ea 03/21/23 03/24/23 Rx a dose pack (Methylpred DP) amlodipine 10 mg tablet 10 mg PO QAM 03/24/23 03/24/23 History bupropion HCl 150 mg 24 hr tablet, 150 mg PO QAM 03/24/23 03/24/23 History extended release cyclobenzaprine 5 mg tablet 5 mg PO TID 03/24/23 03/24/23 History dextroamphetamine-amphetamine 10 10 mg PO QPM PRN ADHD SYMPTOMS 03/24/23 03/24/23 History mg tablet dextroamphetamine-amphetamine ER 50 mg PO QAM 03/24/23 03/24/23 History 25 mg 24hr capsule,extend release diazepam 5 mg tablet 5 - 10 mg PO DAILY PRN SEVERE 03/24/23 03/24/23 History ANXIETY escitalopram oxalate 20 mg tablet 20 mg PO QAM 03/24/23 03/24/23 History glimepiride 2 mg tablet 2 mg PO DAILYBB 03/24/23 03/24/23 History prednisone 20 mg tablet 40 mg PO DAILY 03/24/23 03/24/23 History Patient History Medical History ADHD Anxiety Depression Diabetes Hypertension Surgical History History of partial colectomy S/P cervical spinal fusion Social History Smoking Status: Former smoker Tobacco Type: Cigarettes Second Hand Exposure: No; Do You Dip or Chew Tobacco: No; Hx Alcohol Use: Yes Alcohol type: beer and wine Hx Substance Use: No Preferred Language: [place] Communication Ability: Effective Hearing Ability: Normal 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 She has 3/5 left quadriceps secondary to pain. There is 5 or 5 on the right. She is hyperesthetic to light touch left thigh. Deep and reflexes diminished. Results & Data Vital Signs (Past 12 Hours) Vital Signs Temp Pulse Pulse Pulse Resp BP Pulse Ox 03/25/23 07:12 36.5 C 60 18 144/78 H 96 03/25/23 04:55 03/25/23 04:55 36.5 C 18 177/83 H 96 03/25/23 04:35 58 L 96 03/25/23 03:46 70 14 135/80 97 03/25/23 03:30 59 L 03/25/23 01:31 64 15 157/85 H 03/24/23 22:06 68 03/24/23 22:01 66 19 98 03/24/23 22:01 36.8 C 66 20 192/98 H 97 O2 Del Method O2 Flow Rate 03/25/23 07:12 Room Air 03/25/23 04:55 Room Air 03/25/23 04:55 Nasal Cannula 2 03/25/23 04:35 Nasal Cannula 2 03/25/23 03:46 03/25/23 03:30 03/25/23 01:31 03/24/23 22:06 03/24/23 22:01 Room Air 03/24/23 22:01 Room Air
--- NOTE | 2023-03-25 13:07 | Pain Management Consultation ---
Date of Consultation March 25, 2023 Assessment & Plan (1) Lumbar disc herniation with radiculopathy: (2) Lumbar radiculopathy: (3) Diabetes: (4) Bacteriuria: Plan 1. Patient with lumbar radicular pain with evidence of a left lateral disc herniation at L2-3 as well as some foraminal stenosis at L3-4 potentially contributing to her left thigh region pain complaint of an acute fashion. Surgical intervention has been deferred currently. Patient wished to pursue lumbar JEFFY. We discussed pursuing a left L2-3 +/- L3-4 transforaminal JEFFY. Side effects versus benefits discussed. All questions answered patient elects to proceed with the procedure. We are tentatively planning for this procedure to be completed Wednesday in the outpatient setting at [facility] pain clinic. Will await outcome of her urine culture prior to making definitive recommendation regarding timeframe for JEFFY. 2. Will recommend gabapentin 300 mg nightly potentially titrating to twice daily-3 times daily over the next 1 week pending response 3. Patient will continue with her current opiate therapy as prescribed without change in recommendations 4. Further definitive recommendations pending outcome of urine culture Thank you for allowing us to participate in the care of Mrs. French History of Present Illness Reason for Consultation: Intractable left thigh pain Requesting Physician: Darwin Banda DO Attending Physician: Hans Wright MD History of Present Illness Mrs. French is a 62-year-old female who presented with acute left lower extremity radicular pain into the medial/anterior thigh stopping at the level of the knee. Her pain began acutely 5-6 days ago without known injury. She believes that due to extended sitting in an "poorly ergonomic chair" while working 12-15 hours/day over the past 1-2 weeks contributed to her onset of pain. She does have some intermittent axial low back pain and typically undergoes rn intensive care unit which resolves her symptoms and manages her complaints. She denies any prior history of similar pain in the left lower extremity as she has been experiencing over the past 1 week. She was evaluated emergently in [place] over the past weekend while visiting family and was prescribed a Medrol Dosepak which she did finish without improvement in complaints. Patient describes the pain as sharp, burning and shooting in characteristic aggravated with any movement. She is reporting difficulty ambulating due to the pain with some resultant weakness to the discomfort. Patient rates her pain a 3-4/10 at its best while lying supine. Her pain can escalate to an 8-9/10 with any movement. She does find IV morphine to be moderately effective at diminishing her pain. She has previously trialed [id number] NSAIDs, Tylenol and oral opiate therapy such as hydrocodone and Percocet without relief. She was treated with Medrol Dosepak and cyclobenzaprine without relief of symptoms. She was evaluated by Dr. Banda who is considering surgery, but the patient wishes to consider epidural steroid injection initially as she has some upcoming job-related duties that she needs to complete prior to considering surgical intervention. She denies bowel or bladder incontinence or saddle anesthesia. She has no lower extremity paresthesia complaints. Plan of care discussed with Dr. Esthela Burgos. Allergies Allergy/AdvReac Type Severity Reaction Status Date / Time amoxicillin Allergy Intermediate RASH Verified 03/24/23 23:13 Sulfa (Sulfonamide Allergy Intermediate Rash Verified 03/24/23 23:13 Antibiotics) oxycodone AdvReac Intermediate N&V Verified 03/24/23 23:13 Home Medications Medication Instructions Recorded Confirmed Type methylprednisolone 4 mg tablets in 4 mg PO DIRECTED #21 ea 03/21/23 03/24/23 Rx a dose pack (Methylpred DP) amlodipine 10 mg tablet 10 mg PO QAM 03/24/23 03/24/23 History bupropion HCl 150 mg 24 hr tablet, 150 mg PO QAM 03/24/23 03/24/23 History extended release cyclobenzaprine 5 mg tablet 5 mg PO TID 03/24/23 03/24/23 History dextroamphetamine-amphetamine 10 10 mg PO QPM PRN ADHD SYMPTOMS 03/24/23 03/24/23 History mg tablet dextroamphetamine-amphetamine ER 50 mg PO QAM 03/24/23 03/24/23 History 25 mg 24hr capsule,extend release diazepam 5 mg tablet 5 - 10 mg PO DAILY PRN SEVERE 03/24/23 03/24/23 History ANXIETY escitalopram oxalate 20 mg tablet 20 mg PO QAM 03/24/23 03/24/23 History glimepiride 2 mg tablet 2 mg PO DAILYBB 03/24/23 03/24/23 History prednisone 20 mg tablet 40 mg PO DAILY 03/24/23 03/24/23 History Patient History Medical History (Updated 03/25/23 @ 13:05 by Evan Meeks PA-C) ADHD Anxiety Bacteriuria Depression Diabetes Hypertension Surgical History History of partial colectomy S/P cervical spinal fusion Social History Smoking Status: Former smoker Tobacco Type: Cigarettes Second Hand Exposure: No; Do You Dip or Chew Tobacco: No; Hx Alcohol Use: Yes Alcohol type: beer and wine Hx Substance Use: No Preferred Language: Nauruan Communication Ability: Effective Hearing Ability: Normal Print Manager Required: No Beliefs That Will Affect Care: None Current Living Situation: Spouse Current Living Situation Comment: house 4 steps to enter current occupational status: employed Other Information That Helps Us Care for You: No Feels Safe at Home: Yes Safety Concerns: Feels Safe At This Time Assistive Devices: None Physical Exam Physical Exam: General: Patient lying quietly in exam room in no acute distress. Speech and thought process appropriate. Mood and affect appropriate. Cognition intact. Head: Normocephalic and atraumatic. ENT: No evidence of nasal or oral mucosal lesions. Mucous membranes are moist. Eyes: Pupils equal round reactive to light. Neck: Supple without adenopathy and full range of motion. Chest: Nontender to palpation of the costosternal junction. Abdomen: Soft and nondistended. No organomegaly. Bowel sounds active. Back/spine: Loss of lumbar lordosis. No focal midline or facet joint tenderness. Patient able to logroll for physical exam. Lower extremities: SLR negative bilaterally. Strength testing 4/5 on the left and 5/5 on the right. Patient reports increased left thigh region pain with any attempted resisted strength maneuvering of the left and right lower extremity. Sensation was intact without focal deficit. No appreciable edema in the lower extremities. Hips nontender with internal/external rotation. Minimally tender over the greater trochanter on the left and nontender on the right. Neurologic: Cranial nerves grossly intact. Ambulatory function not witnessed. Results (Pain Clinic) Diagnostic Review MRI Findings: Allergy/Adv: amoxicillin, Sulfa (Sulfonamide Antibiotics), oxycodone (More) Close Lumbar Spine MRI (Signed) Celia Vivar - 03/25/23 Abdomen/Pelvis CT (Signed) Jose García - 03/24/23 Abdomen/Pelvis CT (Cancelled) 03/24/[address] (Signed) RodrigostefanikdDavid - 03/24/23 Lumbar Spine X-Ray (Signed) Kanu Isaacs - 08/30/22 Hip and Pelvis X-Ray (Signed) Kanu Isaacs - 08/30/22 [employer] [place], [place] [phone] Magnetic Resonance Report Patient:KEITH FRENCH Admit Date:03/25/23 MR#:[id number] Address1:[address] [place] [address] Acct ID:[id number] Address2: Date:1960 [facility] Zip:[place] [address] Age:62 Location:[facility] Sex:F Room/Bed:[facility] 1-14 Att Phy:Hans Wright MD Diagnosis:HTN URG Jenn Phy:Mey Knapp DO Service Date:03/25/23 Fam Phy: Interpreting Phy:Celia Vivar MDAdmit Phy:Jason Mcdaniel MD Ordering Phy:Jason Mcdaniel MD cc: ~ Exam(s): MRI L SPINE Without Contrast EXAM: MR Lumbar Spine Without Intravenous Contrast CLINICAL HISTORY: Reason for exam: intractable back pain. TECHNIQUE: Magnetic resonance images of the lumbar spine without intravenous contrast in multiple planes. COMPARISON: Comparison made to prior CT scan of the lumbar spine from March 24, 2023. FINDINGS: Vertebrae: There are 5 lumbar type vertebral bodies with a mild generalized curve to the right and normal lumbar lordosis. There is subtle loss of left vertebral body height at the L5 segment with mild bone marrow edema concerning for minimally displaced fracture 8% loss of vertebral body height. Otherwise, there is normal vertebral body height and alignment. There is subtle bone marrow edema at the superior endplate of the right groin for segment. There is a small Schmorl's node at the superior endplate of L5. There is moderate right and mild left sacroiliac joint arthropathy. Spinal cord: The conus is normal in size, shape and signal characteristics, terminating at night L1-2. Soft tissues: There is advanced atrophy of the iliopsoas, paraspinous and intraspinous musculature. The aorta and IVC flow voids are intact. The visualized kidneys are unremarkable. There is increased fluid signal within the L4-5 and L5-S1 interspinous bursa. DISCS/SPINAL CANAL/NEURAL FORAMINA: L1-L2: There is mild disc degeneration with annular disc bulge causing mild subarticular recess stenosis, disc extending to the neural foramina without evidence of impingement or significant stenosis. There is mild facet joint arthropathy with mild cellulitis. L2-L3: Moderate disc degeneration with annular disc bulge asymmetric to the left causing a mild left subarticular recess stenosis with disc extending into the neuroforamina causing a mild left stenosis without evidence of neural impingement. There is mild facet arthropathy with mild synovitis. L3-L4: Moderate disc degeneration with annular disc bulge asymmetric to the left causing a mild subarticular recess stenosis and mild spinal canal stenosis. There is disc extending to the neuroforamina causing mild bilateral neuroforaminal stenosis without evidence of neural impingement. There is mild facet joint arthropathy with mild synovitis. L4-L5: Mild disc degeneration with annular disc bulge causing a mild subarticular recess stenosis with disc extending into the neural foramina without evidence of impingement or significant stenosis. There is mild facet joint arthropathy with mild synovitis. L5-S1: Intervertebral disc is normal. There is mild facet arthropathy in length mild synovitis. IMPRESSION: 1. Findings concerning for a minimally displaced superior endplate fracture of the L5 vertebral body. 2. Moderate disc degeneration at L2-3 and L3-4 with mild disc degeneration at L1-L2 and L4-5 with annular disc bulging causing a mild subarticular recess stenosis without evidence of neural impingement. 3. There is mild spinal canal stenosis at L3-4. 4. There is a mild left L2-3, and mild bilateral L3-4 without evidence of neural impingement. 5. There is mild facet arthropathy with mild synovitis. 6. Intraspinous bursitis at L4-5 and L5-S1. 7. Moderate right and mild left sacroiliac joint arthropathy. 8. No evidence of infection, tumor or arachnoiditis. Electronically signed by: Celia Vivar MD 03/25/23 04:16 AM Dictated:03/25/23 0416 Transcribed: 03/25/23 0416
[2023-03-25] MEDS: cefTRIAXone SODIUM 2,000 MG in DEXTROSE 5% 50 ML IV SCH (16:23)
[2023-03-25] MEDS: POLYETHYLENE (MIRALAX) 17 GM PACK PO SCH (16:23)
--- NOTE | 2023-03-25 18:53 | Electrocardiogram Report ---
Test Reason : Blood Pressure : / mmHG Vent. Rate : 067 BPM Atrial Rate : 067 BPM P-R Int : 106 ms QRS Dur : 078 ms QT Int : 400 ms P-R-T Axes : -04 034 069 degrees QTc Int : 422 ms Sinus rhythm with Premature atrial complexes Abnormal ECG When compared with ECG of 07-FEB-2013 19:25, Premature atrial complexes are now Present Confirmed by Bernabe Blank ([id number]) on 03/25/2023 6:52:59 PM Referred By: REFERRED SELF Confirmed By:Joseph Blank
[2023-03-25] MEDS: GABAPENTIN 300 MG CAP PO SCH (19:53)
[2023-03-26] MEDS: MoRPHine SULFATE 4 MG/ML 1 ML CARP\\VIAL IV PRN ×3 (02:09→19:30)
[2023-03-26] MEDS: INSULIN ASPART PER UNIT CHARGE SC SCH ×4 (08:29→20:48)
[2023-03-26] MEDS: LIDOCAINE 5% 1 PATCH TD SCH (08:30)
[2023-03-26] MEDS: CYCLOBENZAPRINE HCL 5 MG TAB PO SCH ×3 (08:30→19:33)
[2023-03-26] MEDS: ESCITALOPRAM OXALATE 20 MG TAB PO SCH (08:30)
[2023-03-26] MEDS: amLODIPine BESYLATE 5 MG TAB PO SCH (08:30)
[2023-03-26] MEDS: buPROPion XL 150 MG TABCR PO SCH (08:30)
[2023-03-26] MEDS: POLYETHYLENE (MIRALAX) 17 GM PACK PO SCH (08:32)
[2023-03-26] MEDS: DEXTROAMPHETAMINE/AMPHETAMINE ER 10 MG CAP PO SCH (08:34)
--- NOTE | 2023-03-26 10:09 | Orthopedic Progress Note ---
Date of Service March 26, 2023 Assessment & Plan (1) Lumbar disc herniation with radiculopathy: Plan: At this time she is waiting for an epidural injection. This is planned for Wednesday. I do not believe she would be a candidate to return home in light of her severe pain and medication requirements. Hopefully she will respond to the injection if not we may have to consider surgical invention. Admission and Anticipated Discharge Date Admission Date: March 25, 2023 Subjective Patient continues to have incapacitating left thigh pain and inability to ambulate. Physical Exam Physical Exam: On exam patient is in bed at this time. She is comfortable and lying supine. Has good strength testing plantarflexion dorsiflexion with weakness to the quadricep. Results & Data Vital Signs (Past 12 Hours) Vital Signs Temp Pulse Resp BP Pulse Ox O2 Del Method 03/26/23 07:09 36.9 C 65 16 160/84 H 94 Room Air
[2023-03-26] MEDS: cefTRIAXone SODIUM 2,000 MG in DEXTROSE 5% 50 ML IV SCH (16:35)
--- NOTE | 2023-03-26 16:53 | Hospitalist Progress Note ---
Date of Service March 26, 2023 Assessment & Plan (1) Lumbar radiculopathy: Plan: This is a 62yo F with PMH of hypertension, DM2 on oral medications, ADD, anxiety/mood disorder who presents with intractable pain of L leg. Intractable pain of L thigh Lumbar radiculopathy Lumbar radicular pain with evidence of a left lateral disc herniation at L2-3 as well as some foraminal stenosis at L3-4 potentially contributing to her left thigh region pain complaint of an acute fashion. Follows with Dr. Banda and history of back surgeries in the past. Currently wishing to defer for surgery till later this fall but significant left thigh pain with ambulation. Steroid held on admission as it has been ineffective at improving pain per patient Evaluated by pain management, who recommend spinal injection in clinic setting on Wednesday. Also started on gabapentin 300 mg at bedtime with plans to titrate up to BID or TID dosing over the next week Continue pain management with IV morphine as needed, oxycodone, lidocaine patch Abnormal UA Started on empiric Rocephin, follow urine culture and plan for 5-day abx course Hypertension, markedly elevated upon arrival at the ER 2/2 pain but now normotensive DM2 on oral medications, reasonable control as of remote hemoglobin A1c of 7.18 April 2020 Hx ADD, anxiety/mood disorder Chronic, at baseline Admission and Anticipated Discharge Date Admission Date: March 25, 2023 Supervising Physician Co-Signing Physician Notes delayed entry date of service noted above Attending Addendum: care coordinated with FOREST Gonzalez please refer to her notes for full details, I agree with her notes patient seen and examined, records reviewed by myself as well diagnoses and plan of care as per FOREST Gonzalez's notes Hans Wright MD Subjective Seen in follow up for left sided sciatica. Still having significant L thigh pain making ambulation extremely painful. More comfortable at rest today. No additional new symptoms. No F/C, lightheadedness, CP, SOB, N/V, abdominal pain. Urinating without issue. Had a bowel movement this morning. Review of Systems Review of Systems: At least ten systems reviewed and negative except as noted in the HPI. Physical Exam Physical Exam: Gen: WD/WN, NAD, lying in bed, A&Ox3 HEENT: Normocephalic, atraumatic, conjunctivae moist, sclerae anicteric, mucous membranes moist Lung: Clear to Auscultation bilaterally, no wheezes/rales/rhonchi Heart: Regular rate, regular rhythm, no murmurs, rubs, or gallops Abdomen: Soft, NT, ND +BS x 4 Extremities: L anterior thigh with lidocaine patch, significant pain with movement, no edema, moving all extremities spontaneously Skin: Warm, no rash Results & Data Results & Data Vital Signs (Past 12 Hours) Vital Signs Temp Pulse Resp BP Pulse Ox O2 Del Method 03/26/23 14:26 36.8 C 69 16 133/71 96 Room Air 03/26/23 07:09 36.9 C 65 16 160/84 H 94 Room Air Diagnostic Findings Lumbar Spine CT 03/24/23 16:28 CT lumbar spine wo con HISTORY: 62 years-old Female Back Pain kilo back pain without reported trauma COMPARISON: Lumbar spine radiographs 08/30/2022, 05/15/2012. TECHNIQUE: Multiple axial CT images of the lumbar spine were obtained without the use of IV contrast. A dose lowering technique was used consistent with the principals of ALARA. FINDINGS: Minimal superior endplate compression at L5 of less than 20% is new from the 2011 comparison. Moderate multilevel spondylitic spurring and facet arthrosis. Posterior disc osteophyte complex at L2-L3. No definite acute fracture, s ubluxation or retropulsion identified. Moderate degeneration of the SI joints. The imaged intraabdominal and intrapelvic structures demonstrate no acute abnormality. L1-L2: Posterior annular disc bulge with ligamentum flavum thickening and severe facet arthrosis. Minimal central canal stenosis. Moderate with moderate left foraminal narrowing. L2-L3: Posterior disc osteophyte complex with ligamentum flavum thickening and moderate facet arthrosis. Mild/moderate central canal stenosis with moderate to severe left and mfur-xm-fyylifef right neural foraminal narrowing. L3-L4: Posterior annular disc bulge with ligamentum flavum thickening and severe facet arthrosis. Moderate central canal stenosis with severe left and moderate right foraminal narrowing. L4-L5: Posterior annular disc bulge with ligamentum thickening and moderate facet arthrosis. Small central disc protrusion. Xvbn-dh-nlwoaovz central canal stenosis with moderate left and lxrr-kz-rqwcnjyp right neural foraminal narrowi ng. L5-S1: Tiny posterior renal disc bulge with moderate facet arthrosis. Mild right with moderate left foraminal narrowing. IMPRESSION: 1. No definite acute fracture or subluxation. 2. Less than 20% superior endplate compression at L5 is technically age indeterminate however is favored to be chronic. 3. Discogenic degeneration with spondylotic spurring and facet arthrosis as above. ACT 112: Negative or not required by law. The above report was generated using voice recognition software. It may contain grammatical, syntax or spelling errors. Electronically signed by: David Caraballo M.D. 03/24/2023 5:19 PM Abdomen/Pelvis CT 03/24/23 17:38 CT abd pelvis wo con CLINICAL HISTORY: low back pain TECHNIQUE: Helical axial images of the abdomen and pelvis were obtained. Automated dose lowering techniques and/or adjustment according to patient size were utilized for this exam. This exam was performed without intravenous contrast. CT DOSE: 1417.02 mGy.cm COMPARISON: Comparison is made to CT abdomen pelvis 9 01/06/2020 FINDINGS: Lower chest: No acute abnormality. Liver: Unremarkable. No focal lesions are seen. Gallbladder and biliary tree: No calcified gallstones. Normal caliber wall. No intra- or extrahepatic biliary ductal dilation. Pancreas: Unremarkable, no focal lesions. Spleen: Unremarkable. Adrenals: Unremarkable. Kidneys and ureters: Unremarkable. Bladder: Unremarkable. Reproductive organs: Unremarkable. Bowel: Postsurgical changes are seen in the colon. Lymph nodes Retroperitoneal: Unremarkable. Pelvic: Unremarkable. Mesenteric: Unremarkable. Peritoneum: Normal. Vessels: Unremarkable. Abdominal wall: A supraumbilical fat-containing hernia noted. Bones: Degenerative changes in the visualized spine. IMPRESSION: No acute abnormalities to explain back pain. ACT 112: Negative or not required by law. Electronically signed by: Jose García M.D. 03/24/2023 7:03 PM Lumbar Spine MRI 03/25/23 01:24 Exam(s): MRI L SPINE Without Contrast EXAM: MR Lumbar Spine Without Intravenous Contrast CLINICAL HISTORY: Reason for exam: intractable back pain. TECHNIQUE: Magnetic resonance images of the lumbar spine without intravenous contrast in multiple planes. COMPARISON: Comparison made to prior CT scan of the lumbar spine from March 24, 2023. FINDINGS: Vertebrae: There are 5 lumbar type vertebral bodies with a mild generalized curve to the right and normal lumbar lordosis. There is subtle loss of left vertebral body height at the L5 segment with mild bone marrow edema concerning for minimally displaced fracture 8% loss of vertebral body height. Otherwise, there is normal vertebral body height and alignment. There is subtle bone marrow edema at the superior endplate of the right groin for segment. There is a small Schmorl's node at the superior endplate of L5. There is moderate right and mild left sacroiliac joint arthropathy. Spinal cord: The conus is normal in size, shape and signal characteristics, terminating at night L1-2. Soft tissues: There is advanced atrophy of the iliopsoas, paraspinous and intraspinous musculature. The aorta and IVC flow voids are intact. The visualized kidneys are unremarkable. There is increased fluid signal within the L4-5 and L5-S1 interspinous bursa. DISCS/SPINAL CANAL/NEURAL FORAMINA: L1-L2: There is mild disc degeneration with annular disc bulge causing mild subarticular recess stenosis, disc extending to the neural foramina without evidence of impingement or significant stenosis. There is mild facet joint arthropathy with mild cellulitis. L2-L3: Moderate disc degeneration with annular disc bulge asymmetric to the left causing a mild left subarticular recess stenosis with disc extending into the neuroforamina causing a mild left stenosis without evidence of neural impingement. There is mild facet arthropathy with mild synovitis. L3-L4: Moderate disc degeneration with annular disc bulge asymmetric to the left causing a mild subarticular recess stenosis and mild spinal canal stenosis. There is disc extending to the neuroforamina causing mild bilateral neuroforaminal stenosis without evidence of neural impingement. There is mild facet joint arthropathy with mild synovitis. L4-L5: Mild disc degeneration with annular disc bulge causing a mild subarticular recess stenosis with disc extending into the neural foramina without evidence of impingement or significant stenosis. There is mild facet joint arthropathy with mild synovitis. L5-S1: Intervertebral disc is normal. There is mild facet arthropathy in length mild synovitis. IMPRESSION: 1. Findings concerning for a minimally displaced superior endplate fracture of the L5 vertebral body. 2. Moderate disc degeneration at L2-3 and L3-4 with mild disc degeneration at L1-L2 and L4-5 with annular disc bulging causing a mild subarticular recess stenosis without evidence of neural impingement. 3. There is mild spinal canal stenosis at L3-4. 4. There is a mild left L2-3, and mild bilateral L3-4 without evidence of neural impingement. 5. There is mild facet arthropathy with mild synovitis. 6. Intraspinous bursitis at L4-5 and L5-S1. 7. Moderate right and mild left sacroiliac joint arthropathy. 8. No evidence of infection, tumor or arachnoiditis. Electronically signed by: Celia Vivar MD 03/25/23 04:16 AM
--- NOTE | 2023-03-26 18:10 | Communication Note ---
Date of Service: March 26, 2023 Noted urine cx results of mixed jacqueline. Pt afebrile. Will plan for L L2-3 and L L3-4 TFE wednesday03/29/23. NPO p MN order placed, OR aware.
[2023-03-26] MEDS: GABAPENTIN 300 MG CAP PO SCH (19:33)
[2023-03-27] MEDS: MoRPHine SULFATE 4 MG/ML 1 ML CARP\\VIAL IV PRN ×5 (03:24→23:50)
[2023-03-27 07:43] LABS: BUN Creatinine Ratio 20.7 (10-20); Calcium 8.7 mg/dl (8.6-10.3); Creatinine Clr Calc Pharmacy 72.8 ml/min; Est GFR (African American) 88.9 ml/min; Est GFR (Non-African American) 76.7 ml/min; Potassium 3.7 mmol/L (3.5-5.1)
[2023-03-27 07:50] LABS: Hematocrit (blood only) 41.3 % (37.0-47.0); Hemoglobin 14.3 g/dl (12.0-16.0); Mean Corpuscular Hemoglobin 30.8 pg (25.0-34.0); Mean Corpuscular Hgb Conc 34.6 g/dL (32.0-36.0); Mean Corpuscular Volume 88.8 fL (80.0-100.0); Mean Platelet Volume 10.5 fL (9.4-12.4); Platelet Count 231 K/uL (130-400); RDW Coefficient of Variation 12.2 % (11.5-14.5); Red Blood Count 4.65 M/uL (4.20-5.40)
[2023-03-27] MEDS: INSULIN ASPART PER UNIT CHARGE SC SCH ×4 (08:30→21:39)
[2023-03-27] MEDS: DEXTROAMPHETAMINE/AMPHETAMINE ER 10 MG CAP PO SCH (08:44)
[2023-03-27] MEDS: amLODIPine BESYLATE 5 MG TAB PO SCH (08:44)
[2023-03-27] MEDS: CYCLOBENZAPRINE HCL 5 MG TAB PO SCH ×3 (08:45→19:28)
[2023-03-27] MEDS: ESCITALOPRAM OXALATE 20 MG TAB PO SCH (08:45)
[2023-03-27] MEDS: buPROPion XL 150 MG TABCR PO SCH (08:45)
[2023-03-27] MEDS: POLYETHYLENE (MIRALAX) 17 GM PACK PO SCH (08:46)
[2023-03-27] MEDS: LIDOCAINE 5% 1 PATCH TD SCH (08:46)
--- NOTE | 2023-03-27 14:27 | Hospitalist Progress Note ---
Date of Service March 27, 2023 Assessment & Plan (1) Lumbar radiculopathy: Plan: per admitting service notes with addendum: This is a 62yo F with PMH of hypertension, DM2 on oral medications, ADD, anxiety/mood disorder who presents with intractable pain of L leg. Intractable pain of L thigh Lumbar radiculopathy Lumbar radicular pain with evidence of a left lateral disc herniation at L2-3 as well as some foraminal stenosis at L3-4 potentially contributing to her left thigh region pain complaint of an acute fashion. Follows with Dr. Banda and history of back surgeries in the past. Currently wishing to defer for surgery till later this fall but significant left thigh pain with ambulation. Steroid held on admission as it has been ineffective at improving pain per patient Evaluated by pain management, who recommend spinal injection in clinic setting on Wednesday. Also started on gabapentin 300 mg at bedtime with plans to titrate up to BID or TID dosing over the next week Continue pain management with IV morphine as needed, oxycodone, lidocaine patch 03/27 for steroid injection on Wednesday continue present PRN meds for pain Abnormal UA Started on empiric Rocephin, follow urine culture and plan for 5-day abx course 03/27 no symptoms urine culture: negative d/c Ceftriaxone Hypertension, markedly elevated upon arrival at the ER 2/2 pain but now normotensive monitor BP DM2 on oral medications, reasonable control as of remote hemoglobin A1c of 7.18 April 2020 Hx ADD, anxiety/mood disorder Chronic, at baseline plan of care discussed with patient all questions answered she is understanding, agreeable, comfortable with the plan of care Admission and Anticipated Discharge Date Admission Date: March 25, 2023 Subjective ff up for back pain, etc seen resting in bed not in distress back pain about the same relieved by Morphine IV no other new symptoms denies urinary symptoms Review of Systems Review of Systems: all noted and negative except for above Physical Exam Physical Exam: General- oriented x 3, not in distress, speaks in sentences with no effort or accessory muscle use Eyes- anicteric Neck- no JVD Lungs- clear breath sounds bilaterally, no rales/wheezes Heart- normal rate, regular rhythm; no murmurs Abdomen- normal bowel sounds, nondistended, soft, nontender Extremities- no pretibial edema, no calf tenderness Neuro- alert, oriented x 3; no gross focal neurologic deficits Skin- warm & dry Results & Data Results & Data Vital Signs (Past 12 Hours) Vital Signs Temp Pulse Resp BP Pulse Ox O2 Del Method 03/27/23 07:10 36.3 C L 64 18 172/98 H 96 Room Air all noted and reviewed including below
[2023-03-27] MEDS: GABAPENTIN 300 MG CAP PO SCH (19:28)
[2023-03-28] MEDS: MoRPHine SULFATE 4 MG/ML 1 ML CARP\\VIAL IV PRN ×4 (04:01→19:54)
[2023-03-28 07:49] LABS: Hematocrit (blood only) 43.5 % (37.0-47.0); Mean Corpuscular Hemoglobin 30.6 pg (25.0-34.0); Mean Corpuscular Hgb Conc 34.5 g/dL (32.0-36.0); Mean Corpuscular Volume 88.8 fL (80.0-100.0); Mean Platelet Volume 10.4 fL (9.4-12.4); Platelet Count 262 K/uL (130-400); RDW Coefficient of Variation 12.4 % (11.5-14.5); RDW Standard Deviation 40.4 fL (36.4-46.3); White Blood Count 7.94 K/ul (4.8-10.8)
[2023-03-28 08:15] LABS: BUN Creatinine Ratio 19.5 (10-20); Calcium 9.3 mg/dl (8.6-10.3); Creatinine Clr Calc Pharmacy 68.6 ml/min; Est GFR (African American) 82.8 ml/min; Est GFR (Non-African American) 71.4 ml/min; Potassium 4.3 mmol/L (3.5-5.1)
[2023-03-28] MEDS ORDERED: hydrALAZINE HCL 20 MG/ML VIAL IV PRN (08:18)
[2023-03-28] MEDS: INSULIN ASPART PER UNIT CHARGE SC SCH ×5 (08:27→23:53)
[2023-03-28] MEDS: LIDOCAINE 5% 1 PATCH TD SCH (08:34)
[2023-03-28] MEDS: POLYETHYLENE (MIRALAX) 17 GM PACK PO SCH (08:34)
[2023-03-28] MEDS: DEXTROAMPHETAMINE/AMPHETAMINE ER 10 MG CAP PO SCH (08:34)
[2023-03-28] MEDS: ESCITALOPRAM OXALATE 20 MG TAB PO SCH (08:34)
[2023-03-28] MEDS: CYCLOBENZAPRINE HCL 5 MG TAB PO SCH ×3 (08:34→19:55)
[2023-03-28] MEDS: amLODIPine BESYLATE 5 MG TAB PO SCH (08:34)
[2023-03-28] MEDS: buPROPion XL 150 MG TABCR PO SCH (08:34)
[2023-03-28] MEDS: lisinopril 5 MG TAB PO SCH (08:58)
--- NOTE | 2023-03-28 09:39 | Hospitalist Progress Note ---
Date of Service March 28, 2023 Assessment & Plan (1) Lumbar radiculopathy: Plan: per admitting service notes with addendum: This is a 62yo F with PMH of hypertension, DM2 on oral medications, ADD, anxiety/mood disorder who presents with intractable pain of L leg. Intractable pain of L thigh Lumbar radiculopathy Lumbar radicular pain with evidence of a left lateral disc herniation at L2-3 as well as some foraminal stenosis at L3-4 potentially contributing to her left thigh region pain complaint of an acute fashion. Follows with Dr. Banda and history of back surgeries in the past. Currently wishing to defer for surgery till later this fall but significant left thigh pain with ambulation. Steroid held on admission as it has been ineffective at improving pain per patient Evaluated by pain management, who recommend spinal injection in clinic setting on Wednesday. Also started on gabapentin 300 mg at bedtime with plans to titrate up to BID or TID dosing over the next week Continue pain management with IV morphine as needed, oxycodone, lidocaine patch 03/28 for steroid injection tomorrow N.p.o. after midnight continue present PRN meds for pain Will need pain management recommendations regarding home pain meds, oxycodone not effective as per patient Abnormal UA, contaminated specimen Started on empiric Rocephin, follow urine culture and plan for 5-day abx course 03/28 no symptoms urine culture: negative Discontinue ceftriaxone Hypertension, markedly elevated upon arrival at the ER 2/2 pain but now normotensive Still not at goal Add lisinopril 5 mg daily As needed hydralazine DM2 on oral medications, reasonable control as of remote hemoglobin A1c of 7.18 April 2020 Hx ADD, anxiety/mood disorder Chronic, at baseline plan of care discussed with patient all questions answered she is understanding, agreeable, comfortable with the plan of care Admission and Anticipated Discharge Date Admission Date: March 27, 2023 Subjective Follow-up for back pain, etc. Seen resting in bed, not in distress In good spirits Back pain well controlled with IV morphine Able to ambulate to the bathroom somewhat better with less pain No urinary symptoms, fevers or chills No leg weakness or numbness Review of Systems Review of Systems: all noted and negative except for above Physical Exam Physical Exam: General- oriented x 3, not in distress, speaks in sentences with no effort or accessory muscle use Eyes- anicteric Neck- no JVD Lungs- clear breath sounds bilaterally, no rales/wheezes Heart- normal rate, regular rhythm; no murmurs Abdomen- normal bowel sounds, nondistended, soft, nontender Extremities- no pretibial edema, no calf tenderness Neuro- alert, oriented x 3; no gross focal neurologic deficits Skin- warm & dry Results & Data Results & Data Vital Signs (Past 12 Hours) Vital Signs Temp Pulse Resp BP Pulse Ox O2 Del Method 03/28/23 07:53 36.7 C 68 16 169/82 H 94 Room Air 03/27/23 23:00 36.7 C 68 18 166/83 H 95 Room Air all noted and reviewed including below
[2023-03-28] MEDS ORDERED: HYDROCODONE/ACETAMOPHEN 5/325MG TAB PO PRN (16:02)
--- NOTE | 2023-03-28 16:02 | Pain Management Progress Note ---
Date of Service March 28, 2023 Assessment & Plan (1) Lumbar disc herniation with radiculopathy: (2) Lumbar radiculopathy: (3) Diabetes: (4) Bacteriuria: Plan 1. Patient is n.p.o. after midnight for a left L2-3 and L3-4 transforaminal JEFFY. Side effects versus benefits discussed. All questions answered patient elects to proceed with the procedure. Consent was obtained and witnessed. 2. Will recommend increasing gabapentin 300 mg to twice daily. 3. Recommend trial of hydrocodone 5/325 1 p.o. every 6 as needed pain. 4. Discussed expectations of epidural steroid injections and will plan to see her at the [facility] pain management office postdischarge. Admission and Anticipated Discharge Date Admission Date: March 27, 2023 Subjective 62-year-old female with left-sided L2 and L3 radicular symptoms in the setting of a left lateral disc herniation at L2-3 and foraminal stenosis at L3-4. Pain ranges between 3-6 out of 10 currently 6 out of 10 aching sharp stabbing. She reports improved ability to walk from time of admission. She reports she was able to walk to the bathroom today with mild interference. She reports improved sleep since the time of admission. She states that she has not had any side effects from gabapentin 300 mg p.o. nightly dosing. She reports significant nausea with oxycodone but mild benefit with IV morphine. She has not trialed oral hydrocodone in the past. She denies any bowel or bladder incontinence,foot drop, saddle anesthesia, fever, chills, night sweats. She is scheduled for a left L2-3 and left L3-4 transforaminal epidural steroid injection tomorrow Physical Exam Physical Exam: General: Patient lying quietly in hospital bed in no acute distress. Speech and thought process appropriate. Mood and affect appropriate. Cognition intact. Head: Normocephalic and atraumatic. ENT: No evidence of nasal or oral mucosal lesions. Mucous membranes are moist. Eyes: Pupils equal round reactive to light. Neck: Normal visual inspection and full range of motion. Abdomen: Soft and nondistended. Bowel sounds active. Back/spine: Loss of lumbar lordosis. No focal midline or facet joint tenderness. Patient was able to log roll and sit upright with limited difficulty for physical exam. Lower extremities: SLR negative bilaterally. Strength testing 4/5 on the left and 5/5 on the right. Sensation was intact without focal deficit. No appreciable edema in the lower extremities. Nontender over bilateral sacroiliac joints. Minimally tender over the greater trochanter on the left and nontender on the right. Neurologic: Cranial nerves grossly intact. Ambulatory function not witnessed.
--- NOTE | 2023-03-28 18:53 | Anesthesiology Consultation ---
Date of Service March 28, 2023 Assessment & Plan Chart Review Chart Review: Acceptable Risk for Surgery and Patient NOT seen in Pre Admission Testing Consults Requested none ASA ASA2 Proposed Anesthesia Anesthesia Type: MAC History Height/Weight Height: 5 ft 3 in Weight: 83.4 kg Allergies Allergy/AdvReac Type Severity Reaction Status Date / Time amoxicillin Allergy Intermediate RASH Verified 03/24/23 23:13 Sulfa (Sulfonamide Allergy Intermediate Rash Verified 03/24/23 23:13 Antibiotics) oxycodone AdvReac Intermediate N&V Verified 03/24/23 23:13 Medications Home Medications Medication Instructions Recorded Confirmed Last Taken methylprednisolone 4 mg tablets in 4 mg PO DIRECTED #21 ea 03/21/23 03/24/23 Unknown a dose pack (Methylpred DP) amlodipine 10 mg tablet 10 mg PO QAM 03/24/23 03/24/23 03/24/23 bupropion HCl 150 mg 24 hr tablet, 150 mg PO QAM 03/24/23 03/24/23 03/24/23 extended release cyclobenzaprine 5 mg tablet 5 mg PO TID 03/24/23 03/24/23 03/24/23 dextroamphetamine-amphetamine 10 10 mg PO QPM PRN ADHD SYMPTOMS 03/24/23 03/24/23 Unknown mg tablet dextroamphetamine-amphetamine ER 50 mg PO QAM 03/24/23 03/24/23 03/24/23 25 mg 24hr capsule,extend release diazepam 5 mg tablet 5 - 10 mg PO DAILY PRN SEVERE 03/24/23 03/24/23 Unknown ANXIETY escitalopram oxalate 20 mg tablet 20 mg PO QAM 03/24/23 03/24/23 03/24/23 glimepiride 2 mg tablet 2 mg PO DAILYBB 03/24/23 03/24/23 03/24/23 prednisone 20 mg tablet 40 mg PO DAILY 03/24/23 03/24/23 03/24/23 Active Medications Generic Name Dose Route Start Last Admin Trade Name Freq PRN Reason Stop Dose Admin Amlodipine Besylate 10 mg 03/26/23 09:00 03/28/23 08:34 Amlodipine Besylate 5 Mg Tab PO 04/25/23 08:59 10 mg QAM MARU Administration Amphetamine/Dextroamphetamine 50 mg 03/25/23 09:00 03/28/23 08:34 Dextroamphetamine/Amphetamine Er 10 Mg Cap PO 04/08/23 08:59 50 mg QAM MARU Administration Bupropion HCl 150 mg 03/25/23 09:00 03/28/23 08:34 Bupropion Xl 150 Mg Tabcr PO 04/24/23 08:59 150 mg QAM MARU Administration Cyclobenzaprine HCl 5 mg 03/25/23 09:00 03/28/23 13:17 Cyclobenzaprine Hcl 5 Mg Tab PO 04/24/23 08:59 5 mg TID MARU Administration Escitalopram Oxalate 20 mg 03/25/23 09:00 03/28/23 08:34 Escitalopram Oxalate 20 Mg Tab PO 04/24/23 08:59 20 mg QAM MARU Administration Insulin Aspart 0 units 03/25/23 01:45 03/28/23 17:24 Insulin Aspart Per Unit Charge SC 04/24/23 01:44 3 units ACHS MARU Administration Lidocaine 1 patch 03/26/23 09:00 03/28/23 08:34 Lidocaine 5% 1 Patch TD 04/25/23 08:59 Not Given QAM MARU Lisinopril 5 mg 03/28/23 09:00 03/28/23 08:58 Lisinopril 5 Mg Tab PO 04/27/23 08:59 5 mg QAM MARU Administration Lorazepam 0.5 mg 03/25/23 01:06 03/25/23 05:34 Lorazepam 0.5 Mg Tab PO 04/24/23 01:05 0.5 mg TID PRN Administration Anxiety Miscellaneous 1 each 03/26/23 21:00 03/27/23 19:29 Remove Lidoderm Patch N/A 04/25/23 20:59 Not Given DAILY@2100 MARU Morphine Sulfate 4 mg 03/25/23 01:06 03/28/23 13:58 Morphine Sulfate 4 Mg/Ml 1 Ml Carp\Vial IV 04/08/23 01:05 4 mg Q4H PRN Administration Pain Polyethylene Glycol 17 gm 03/25/23 15:30 03/28/23 08:34 Polyethylene (Miralax) 17 Gm Pack PO 04/24/23 15:29 Not Given DAILY MARU Past Medical History Medical History ADHD Anxiety Bacteriuria Depression Diabetes Hypertension obese Exercise / Class Metabolic Activity II 4-5 Yardwork/Stairs/Walk up hill Past Surgical History Surgical History History of partial colectomy S/P cervical spinal fusion Past Anesthesia History No Hx of Anesthesia Complications and No Family Hx of Anesthesia Complications History of PONV No Hx of PONV and No Hx of Motion Sickness Social History Smoking Status: Former smoker Do You Dip or Chew Tobacco: No Hx Alcohol Use: Yes Alcohol type: beer and wine alcohol intake frequency: holidays/special occasions only Hx Substance Use: No Physical Exam Vital Signs Last Vital Signs Temp 36.6 C 03/28/23 14:50 Pulse 75 03/28/23 14:50 Resp 16 03/28/23 14:50 BP 122/76 03/28/23 14:50 Pulse Ox 95 03/28/23 14:50 O2 Del Method Room Air 03/28/23 14:50 O2 Flow Rate 2 03/25/23 04:55 Testing Laboratory Results 03/28/23 07:38 03/28/23 07:38 Hemoglobin A1c 8.6 % (4.5-5.6) H 03/24/23 17:16 Urine Color Yellow 03/25/23 02:20 Urine Appearance Cloudy (Clear) A 03/25/23 02:20 Urine pH 5.5 (4.5-7.5) 03/25/23 02:20 Ur Specific [place] 1.026 (1.000-1.030) 03/25/23 02:20 Urine Protein Negative (Negative) 03/25/23 02:20 Urine Glucose (UA) Trace (Negative) H 03/25/23 02:20 Urine Ketones Negative (Negative) 03/25/23 02:20 Urine Nitrite Negative (Negative) 03/25/23 02:20 Ur Leukocyte Esterase 2+ (Negative) H 03/25/23 02:20 Urine WBC (Auto) >30 /hpf (0-5) H 03/25/23 02:20 Urine RBC (Auto) 5-10 /hpf (0-4) H 03/25/23 02:20 U Hyaline Cast (Auto) 0 /lpf (0-5) 03/25/23 02:20 U Epithel Cells (Auto) >30 /lpf (0-5) H 03/25/23 02:20 Urine Bacteria (Auto) Negative (Negative) 03/25/23 02:20 03/25/23 02:20 Urine Culture - Final Urine,Clean Catch More than three types of organisms present, all moderate counts mixed probable skin jacqueline. No further identifications or sensitivities to follow. 03/28/23 03/28/23 03/28/23 16:55 12:01 07:50 POC Glucose 203 H 198 H 182 H Electrocardiogram Date: 03/24/23 Findings: + NSR @ (@ 67 w/PAC's;ST & T wave abnl;consider infer. ischemia)
[2023-03-28] MEDS: GABAPENTIN 300 MG CAP PO SCH (19:55)
[2023-03-28] MEDS ORDERED: Nursing to Pharmacy Communication SCH (23:15)
[2023-03-29] MEDS: MoRPHine SULFATE 4 MG/ML 1 ML CARP\\VIAL IV PRN ×2 (05:09→09:35)
[2023-03-29] MEDS: INSULIN ASPART PER UNIT CHARGE SC SCH (06:10)
[2023-03-29] MEDS: buPROPion XL 150 MG TABCR PO SCH (08:05)
[2023-03-29] MEDS: ESCITALOPRAM OXALATE 20 MG TAB PO SCH (08:05)
[2023-03-29] MEDS: lisinopril 5 MG TAB PO SCH (08:05)
[2023-03-29] MEDS: amLODIPine BESYLATE 5 MG TAB PO SCH (08:05)
[2023-03-29] MEDS: LIDOCAINE 5% 1 PATCH TD SCH (08:06)
[2023-03-29] MEDS: CYCLOBENZAPRINE HCL 5 MG TAB PO SCH ×2 (08:06→14:18)
[2023-03-29] MEDS: GABAPENTIN 300 MG CAP PO SCH (08:07)
[2023-03-29] MEDS: POLYETHYLENE (MIRALAX) 17 GM PACK PO SCH (08:07)
[2023-03-29] MEDS: DEXTROAMPHETAMINE/AMPHETAMINE ER 10 MG CAP PO SCH (08:15)
--- NOTE | 2023-03-29 09:37 | History & Physical Bridge Note ---
Date of Service March 29, 2023 History & Physical Bridge Note I have examined the patient, reviewed the History & Physical and in the interval since the performance of the History & Physical I have noted the following changes of clinical significance: no changes noted Potential risks including infection, bleeding, nerve injury, reaction to any one of the medications used for the procedure, persistent pain at the injection site and persistent symptoms discussed with the patient. Diagnostic and therapeutic nature of the procedure also discussed with the patient. Alternatives to the specific procedure was also discussed with the patient. Patient's questions were answered. Patient gives informed consent to proceed.
[2023-03-29] MEDS ORDERED: dexAMETHasone**PF** 10 MG/ML VIAL ONE (09:52)
[2023-03-29] MEDS ORDERED: LIDOCAINE 1% LOCAL 20 ML VIAL ONE (09:52)
[2023-03-29] MEDS ORDERED: LIDOCAINE 2% LOCAL 50 ML VIAL ONE (09:52)
[2023-03-29] MEDS ORDERED: ePHEDrine sulfate 50 MG/ML AMP IV PRN (10:05)
[2023-03-29] MEDS ORDERED: ATROPINE SULFATE 0.1 MG/ML 10ML SYR IV PRN (10:05)
[2023-03-29] MEDS ORDERED: ONDANSETRON INJ 2 MG/ML 2 ML VIAL IV PRN (10:05)
[2023-03-29] MEDS ORDERED: fentaNYL citrate PF 100 MCG/2 ML VIAL IV PRN (10:05)
[2023-03-29] MEDS ORDERED: IOPAMIDOL INJ 61% 15 ML VIAL INJ ONE (10:35)
--- NOTE | 2023-03-29 10:49 | Operative Report ---
Post Operative Report Pre & Post Diagnosis Operation Date: 03/29/23 07:00 Pre-Op Diagnosis: Lumbar disc herniation with radiculopathy Post-Op Diagnosis: Lumbar disc herniation with radiculopathy I identified the patient and participated in the time-out.: Yes Procedure Operation Date: 03/29/23 07:00 Actual Procedures p Transforaminal Epidural Left L2-L3 L3-L4(Left) - Esthela Burgos DO Surgeon Esthela Burgos DO Samples And Repairs Preparer none Estimated Blood Loss 0 Findings Consistent with Post-Op Diagnosis Fluids per anes record Specimens none Drains none Anesthesia Type MAC Complications none Disposition Accompanied Patient To Recovery: No Disposition: Recovery Room Indications lumbar radiculopathy left LE Description of Procedure TRANSFORAMINAL EPIDURAL STEROID INJECTION (DIAGNOSTIC) Diagnosis: Lumbar Radiculitis and Herniated Disc Level injected:Left L2-3 and Left L3-4 Surgeon: Dr. Esthela Burgos Anesthesia: local Material forwarded to lab: none Prior to starting, the Patients diagnosis and the procedure were reviewed with the patient in detail. Possible risks, complications and alternative therapies were also reviewed. Patients questions were answered. Informed consent was obtained. Allergies and medication list was reviewed. The patient was brought to the fluoroscopy room and placed in prone position on the table. Immediately prior to starting the procedure, a ``time out was conducted with the staff and the patient where the patient was identified, proposed procedure was verified, consent was reviewed and the proper site for the planned procedure was identified. Fluoroscopy was utilized in performing the procedure to assist the placement of the needle, to evaluate the final position of the needle prior to injection and to avoid intravascular injection. Monitors used included intermittent blood pressure with automated device, continuous pulse oximetry and level of consciousness. Patient was not given any intravenous sedation and constant verbal contact was maintained throughout the procedure. Lumbar-sacral area was prepped with duraprep and betadine solution. Sterile drapes were applied. The appropriate interspace and disk was identified in a true AP view. The fluoroscope was then rotated to obtain a decubitus view in such a manner so that the superior articular process of the inferior vertebra was bisecting the pars inter-articularis of the vertebra above in two or in the 6 oclock position. Next, 2.5 mL of 1% lidocaine was injected for local skin anesthesia. Then, a 22 Gauge 3.5 inch curved (15 degrees) spinal needle was inserted through the skin and subcutaneous tissues and advanced in a co-axial technique. Needle tip was first placed on the infero-lateral margin of the pars inter-articularis. Once the bony margin was contacted, the C-arm was rotated to obtain a lateral view. The needle was slowly ``walked off the bone and advanced toward the anterior and superior aspect of the foramen. Patient did not experience any pain or paresthesia. A six inch micro bore tubing was attached to the needle and aspiration did not demonstrate CSF or blood. Nonionic Isovue contrast 1ml was injected via the needle under live fluoroscopy. Spread of the contrast along the nerve root. AP view was checked to ensure the needle tip was in the close proximity to the nerve root an in the proximal neural foramen lateral to the inferior articular process and in the 6 oclock position. Additional 1ml of the contrast was injected under live fluoroscopy. Neither subdural or subarachnoid spread nor intravascular uptake was noted on plain fluoroscopy. Approximately 10 to 15 second digital subtraction angiogram at 3 f/s rate was done in an AP view with additional contrast. No vascular uptake was noted. Next 5mg PF dexamethasone was injected at each site followed by 2% lidocaine-MPF 1ml to flush the needle. The patient did not experience pain during the injection. The same procedure was repeated at the additional site. Adequate hemostasis was noted. A sterile Band-Aid was applied to the injection site. Patient was monitored for 30 minutes and discharged with an accompanying adult. Discharge instructions were reviewed with the patient/caregiver. Any specific questions were answered. Patient/caregiver voiced understanding of the instructions. Follow-up appointment has been scheduled. I attest to the content of the Intraoperative Record and any orders documented therein. Any exceptions are noted below.
[2023-03-29] MEDS ORDERED: LIDOCAINE 2% LOCAL 50 ML VIAL INJ ONE (10:51)
--- NOTE | 2023-03-29 11:35 | Anesthesiology Progress Note ---
Date of Service March 29, 2023 Anesthesia Post Procedure Vital Signs Vital Signs: Temp Pulse Pulse Resp BP Pulse Ox O2 Del Method 03/29/23 11:15 36.7 C 72 14 143/87 H 95 Room Air 03/29/23 11:05 65 12 142/90 H 96 Room Air 03/29/23 10:55 67 14 157/76 H 99 Nasal Cannula 03/29/23 10:45 36 C L 80 14 139/86 97 Nasal Cannula 03/29/23 09:50 36.6 C 65 65 18 159/78 H 98 Room Air 03/29/23 08:01 36.8 C 66 16 139/83 96 Room Air 03/28/23 20:17 36.8 C 65 16 113/68 94 Room Air 03/28/23 14:50 36.6 C 75 16 122/76 95 Room Air O2 Flow Rate 03/29/23 11:15 03/29/23 11:05 03/29/23 10:55 2 03/29/23 10:45 2 03/29/23 09:50 03/29/23 08:01 03/28/23 20:17 03/28/23 14:50 Pain Intensity Left Leg: Pain Intensity: 2 Transfer of Care Handoff Completed per policy Notes Mental Status: alert / awake / arousable Patient Amnestic to Procedure: Yes Nausea / Vomiting: adequately controlled Pain: adequately controlled Airway Patency, RR, SpO2: stable & adequate BP & HR: stable & adequate Hydration State: stable & adequate Anesthetic Complications: no major complications apparent
[2023-03-29] MEDS ORDERED: Nursing to Pharmacy Communication SCH (11:45)
[2023-03-29] MEDS ORDERED: INSULIN ASPART PER UNIT CHARGE SC SCH ×2 (12:00→16:30)
--- NOTE | 2023-03-29 18:59 | Discharge Summary ---
Discharge Summary Date of Service March 29, 2023 Notes For Next Care Provider Medication Changes From Visit Lisinopril 5mg daily Ephraim PRN Admission HPI Per Admitting Provider History obtained from patient and records. Medical history significant for hypertension, DM2 on oral medications, ADD, anxiety/mood disorder. Last confinement 2012 under Orthopedics spine service for elective cervical spine surgery. Patient seen at the ER 4 days ago for low back pain radiation to left upper leg of 1 day duration. No fever, no chills. No weakness. No incontinence symptoms. No trauma. Patient thinks she was sitting too long behind the computer due to work issues. Impression was sciatica. Patient discharged on Medrol and cyclobenzaprine course which did not help pain. PCP contemplated outpatient lumbar MRI. Patient return to ER for worsening symptoms. Patient denies headache, chest pain, SOB. 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 Admission Exam Per Admitting Provider GENERAL: uncomfortable, obese, no respiratory distress SKIN: Normal color, warm HEENT: [place] palpebral conjunctivae, no ptosis, dry buccal mucosa NECK : Supple, short neck, no tenderness CHEST : CTA, no tenderness HEART : RRR, no obvious murmurs ABDOMEN: Some distention, nontender BACK : Low back tenderness, negative SLR EXTREMITIES : Minimal LE swelling, no LE tenderness, no other conspicuous deformities noted NEUROLOGIC : Coherent, no facial asymmetry, no other gross focality Principal Dx & Hospital Course #1 = Principal Diagnosis (1) Lumbar radiculopathy: per admitting service notes with addendum: This is a 62yo F with PMH of hypertension, DM2 on oral medications, ADD, anxiety/mood disorder who presents with intractable pain of L leg. Intractable pain of L thigh Lumbar radiculopathy Lumbar radicular pain with evidence of a left lateral disc herniation at L2-3 as well as some foraminal stenosis at L3-4 potentially contributing to her left thigh region pain complaint of an acute fashion. Follows with Dr. Banda and history of back surgeries in the past. Currently wishing to defer for surgery till later this fall but significant left thigh pain with ambulation. Steroid held on admission as it has been ineffective at improving pain per patient Dr. Banda- Ortho Spine consulted recommended pain management - steroid injection for the meantime, then Surgery in a few weeks Dr. Bazzi- Pain management consulted 03/29 s/p steroid injection Transforaminal Epidural Left L2-L3 L3-L4(Left) patient reports significant improvement of pain after the procedure ambulating better requested d/c home prescribed with Gabapentin and PRN Hydrocodone per Pain Mgt recommendations ff up with Dr. Bazzi and Dr. Banda as outpatient Abnormal UA, contaminated specimen 03/29 no symptoms urine culture: negative Discontinued ceftriaxone Hypertension, markedly elevated upon arrival at the ER 2/2 pain Still not at goal Added lisinopril 5 mg daily PCP ff up in 1 week DM2 on oral medications, reasonable control as of remote hemoglobin A1c of 7.18 April 2020 Hx ADD, anxiety/mood disorder Chronic, at baseline plan of care discussed with patient all questions answered she is understanding, agreeable, comfortable with the plan of care Discharge Exam General- oriented x 3, not in distress, speaks in sentences with no effort or accessory muscle use Eyes- anicteric Neck- no JVD Lungs- clear breath sounds bilaterally Heart- normal rate, regular rhythm; no murmurs Abdomen- normal bowel sounds, nondistended, soft, nontender Extremities- no pretibial edema, no calf tenderness Neuro- alert, oriented x 3; no gross focal neurologic deficits Skin- warm & dry Updated Medication List Medication Instructions Recorded Confirmed Type amlodipine 10 mg tablet 10 mg PO QAM 03/24/23 03/24/23 History bupropion HCl 150 mg 24 hr tablet, 150 mg PO QAM 03/24/23 03/24/23 History extended release cyclobenzaprine 5 mg tablet 5 mg PO TID 03/24/23 03/24/23 History dextroamphetamine-amphetamine 10 10 mg PO QPM PRN ADHD SYMPTOMS 03/24/23 03/24/23 History mg tablet dextroamphetamine-amphetamine ER 50 mg PO QAM 03/24/23 03/24/23 History 25 mg 24hr capsule,extend release diazepam 5 mg tablet 5 - 10 mg PO DAILY PRN SEVERE 03/24/23 03/24/23 History ANXIETY escitalopram oxalate 20 mg tablet 20 mg PO QAM 03/24/23 03/24/23 History glimepiride 2 mg tablet 2 mg PO DAILYBB 03/24/23 03/24/23 History gabapentin 300 mg capsule 300 mg PO BID 14 days #28 caps 03/29/23 Rx hydrocodone 5 mg-acetaminophen 325 1 tab PO Q6H PRN SEVERE PAIN #14 03/29/23 Rx mg tablet tabs lisinopril 5 mg tablet (Zestril) 5 mg PO QAM 30 days #30 tabs 03/29/23 Rx Hospital Stay Data Consultations 03/25/23 00:55 ED Decision to Admit Stat 03/25/23 03:34 Consult Orthopedic Spine Surgery Routine 03/25/23 08:39 Consult Pain Management Routine Procedures Performed Operation Date: 03/29/23 07:00 Actual Procedures p Transforaminal Epidural Left L2-L3 L3-L4(Left) - Esthela Bazzi DO Diagnostic Imagining Performed Laboratory Results WBC 7.94 K/ul (4.8-10.8) 03/28/23 07:38 RBC 4.90 M/uL (4.20-5.40) 03/28/23 07:38 Hgb 15.0 g/dl (12.0-16.0) 03/28/23 07:38 Hct 43.5 % (37.0-47.0) 03/28/23 07:38 MCV 88.8 fL (80.0-100.0) 03/28/23 07:38 MCH 30.6 pg (25.0-34.0) 03/28/23 07:38 MCHC 34.5 g/dL (32.0-36.0) 03/28/23 07:38 RDW Std Deviation 40.4 fL (36.4-46.3) 03/28/23 07:38 RDW Coeff of Ethan 12.4 % (11.5-14.5) 03/28/23 07:38 Plt Count 262 K/uL (130-400) 03/28/23 07:38 MPV 10.4 fL (9.4-12.4) 03/28/23 07:38 Immature Gran % (Auto) 0.5 % 03/24/23 17:16 Neut % (Auto) 69.9 % 03/24/23 17:16 Lymph % (Auto) 19.3 % 03/24/23 17:16 [place] % (Auto) 9.5 % 03/24/23 17:16 Eos % (Auto) 0.3 % 03/24/23 17:16 Baso % (Auto) 0.5 % 03/24/23 17:16 Neut # (Auto) 7.03 K/uL (1.40-6.50) H 03/24/23 17:16 Lymph # (Auto) 1.94 K/uL (1.20-3.40) 03/24/23 17:16 [place] # (Auto) 0.96 K/uL (0.11-0.59) H 03/24/23 17:16 Eos # (Auto) 0.03 K/uL (0.00-0.50) 03/24/23 17:16 Baso # (Auto) 0.05 K/uL (0.00-0.20) 03/24/23 17:16 Immature Gran # (Auto) 0.05 K/uL (0.01-0.20) 03/24/23 17:16 Sodium 138 mmol/L (136-145) 03/28/23 07:38 Potassium 4.3 mmol/L (3.5-5.1) 03/28/23 07:38 Chloride 104 mmol/L (98-107) 03/28/23 07:38 Carbon Dioxide 28 mmol/L (21-32) 03/28/23 07:38 Anion Gap 6 (3-11) 03/28/23 07:38 BUN 17 mg/dl (6-23) 03/28/23 07:38 Creatinine 0.87 mg/dl (0.6-1.2) 03/28/23 07:38 Est Cr Clr Drug Dosing 68.6 ml/min 03/28/23 07:38 Est GFR ( Amer) 82.8 ml/min 03/28/23 07:38 Est GFR (Non-Af Amer) 71.4 ml/min 03/28/23 07:38 BUN/Creatinine Ratio 19.5 (10-20) 03/28/23 07:38 Glucose 189 mg/dl (70-99(Fasting)) H 03/28/23 07:38 POC Glucose 195 mg/dl (70-99) H 03/29/23 11:34 Estimat Average Glucose 200 mg/dl 03/24/23 17:16 Hemoglobin A1c 8.6 % (4.5-5.6) H 03/24/23 17:16 Calcium 9.3 mg/dl (8.6-10.3) 03/28/23 07:38 Total Bilirubin 1.2 mg/dl (0.2-1.0) H 03/24/23 17:16 AST 16 U/L (13-39) 03/24/23 17:16 ALT 18 U/L (7-52) 03/24/23 17:16 Alkaline Phosphatase 111 U/L (34-104) H 03/24/23 17:16 Total Protein 7.6 gm/dl (6.0-8.3) 03/24/23 17:16 Albumin 4.5 gm/dl (3.4-5.0) 03/24/23 17:16 Globulin 3.1 gm/dl (2.5-4.0) 03/24/23 17:16 Albumin/Globulin Ratio 1.5 (0.9-2) 03/24/23 17:16 Urine Color Yellow 03/25/23 02:20 Urine Appearance Cloudy (Clear) A 03/25/23 02:20 Urine pH 5.5 (4.5-7.5) 03/25/23 02:20 Ur Specific [place] 1.026 (1.000-1.030) 03/25/23 02:20 Urine Protein Negative (Negative) 03/25/23 02:20 Urine Glucose (UA) Trace (Negative) H 03/25/23 02:20 Urine Ketones Negative (Negative) 03/25/23 02:20 Urine Blood Negative (Negative) 03/25/23 02:20 Urine Nitrite Negative (Negative) 03/25/23 02:20 Urine Bilirubin Negative (Negative) 03/25/23 02:20 Urine Urobilinogen Negative (Negative) 03/25/23 02:20 Ur Leukocyte Esterase 2+ (Negative) H 03/25/23 02:20 Urine WBC (Auto) >30 /hpf (0-5) H 03/25/23 02:20 Urine RBC (Auto) 5-10 /hpf (0-4) H 03/25/23 02:20 U Hyaline Cast (Auto) 0 /lpf (0-5) 03/25/23 02:20 U Epithel Cells (Auto) >30 /lpf (0-5) H 03/25/23 02:20 Urine Bacteria (Auto) Negative (Negative) 03/25/23 02:20 Ur Renal Epithelial Cell 0-5 /lpf (0-5) 03/25/23 02:20 Calcium Oxalate Crystal Present (None Prsent) A 03/25/23 02:[address] 03/24/23 16:28 CT lumbar spine wo con HISTORY: 62 years-old Female Back Pain kilo back pain without reported trauma COMPARISON: Lumbar spine radiographs 08/30/2022, 05/15/2012. TECHNIQUE: Multiple axial CT images of the lumbar spine were obtained without the use of IV contrast. A dose lowering technique was used consistent with the principals of ALARA. FINDINGS: Minimal superior endplate compression at L5 of less than 20% is new from the 2011 comparison. Moderate multilevel spondylitic spurring and facet arthrosis. Posterior disc osteophyte complex at L2-L3. No definite acute fracture, subluxation or retropulsion identified. Moderate degeneration of the SI joints. The imaged intraabdominal and intrapelvic structures demonstrate no acute abnormality. L1-L2: Posterior annular disc bulge with ligamentum flavum thickening and severe facet arthrosis. Minimal central canal stenosis. Moderate with moderate left foraminal narrowing. L2-L3: Posterior disc osteophyte complex with ligamentum flavum thickening and moderate facet arthrosis. Mild/moderate central canal stenosis with moderate to severe left and [id number] right neural foraminal narrowing. L3-L4: Posterior annular disc bulge with ligamentum flavum thickening and severe facet arthrosis. Moderate central canal stenosis with severe left and moderate right foraminal narrowing. L4-L5: Posterior annular disc bulge with ligamentum thickening and moderate facet arthrosis. Small central disc protrusion. [id number]-mo-[id number] central canal stenosis with moderate left and [id number] right neural foraminal narrowing. L5-S1: Tiny posterior renal disc bulge with moderate facet arthrosis. Mild right with moderate left foraminal narrowing. IMPRESSION: 1. No definite acute fracture or subluxation. 2. Less than 20% superior endplate compression at L5 is technically age indeterminate however is favored to be chronic. 3. Discogenic degeneration with spondylotic spurring and facet arthrosis as abov e. ACT 112: Negative or not required by law. The above report was generated using voice recognition software. It may contain grammatical, syntax or spelling errors. Electronically signed by: David Caraballo M.D. 03/24/2023 5:19 PM Abdomen/Pelvis CT 03/24/23 17:38 CT abd pelvis wo con CLINICAL HISTORY: low back pain TECHNIQUE: Helical axial images of the abdomen and pelvis were obtained. Automated dose lowering techniques and/or adjustment according to patient size were utilized for this exam. This exam was performed without intravenous contra st. CT DOSE: 1417.02 mGy.cm COMPARISON: Comparison is made to CT abdomen pelvis 9 01/06/2020 FINDINGS: Lower chest: No acute abnormality. Liver: Unremarkable. No focal lesions are seen. Gallbladder and biliary tree: No calcified gallstones. Normal caliber wall. No intra- or extrahepatic biliary ductal dilation. Pancreas: Unremarkable, no focal lesions. Spleen: Unremarkable. Adrenals: Unremarkable. Kidneys and ureters: Unremarkable. Bladder: Unremarkable. Reproductive organs: Unremarkable. Bowel: Postsurgical changes are seen in the colon. Lymph nodes Retroperitoneal: Unremarkable. Pelvic: Unremarkable. Mesenteric: Unremarkable. Peritoneum: Normal. Vessels: Unremarkable. Abdominal wall: A supraumbilical fat-containing hernia noted. Bones: Degenerative changes in the visualized spine. IMPRESSION: No acute abnormalities to explain back pain. ACT 112: Negative or not required by law. Electronically signed by: Jose García M.D. 03/24/2023 7:03 PM Lumbar Spine MRI 03/25/23 01:24 Exam(s): MRI L SPINE Without Contrast EXAM: MR Lumbar Spine Without Intravenous Contrast CLINICAL HISTORY: Reason for exam: intractable back pain. TECHNIQUE: Magnetic resonance images of the lumbar spine without intravenous contrast in multiple planes. COMPARISON: Comparison made to prior CT scan of the lumbar spine from March 24, 2023. FINDINGS: Vertebrae: There are 5 lumbar type vertebral bodies with a mild generalized curve to the right and normal lumbar lordosis. There is subtle loss of left vertebral body height at the L5 segment with mild bone marrow edema concerning for minimally displaced fracture 8% loss of vertebral body height. Otherwise, there is normal vertebral body height and alignment. There is subtle bone marrow edema at the superior endplate of the right groin for segment. There is a small Schmorl's node at the superior endplate of L5. There is moderate right and mild left sacroiliac joint arthropathy. Spinal cord: The conus is normal in size, shape and signal characteristics, terminating at night L1-2. Soft tissues: There is advanced atrophy of the iliopsoas, paraspinous and intraspinous musculature. The aorta and IVC flow voids are intact. The visualized kidneys are unremarkable. There is increased fluid signal within the L4-5 and L5-S1 interspinous bursa. DISCS/SPINAL CANAL/NEURAL FORAMINA: L1-L2: There is mild disc degeneration with annular disc bulge causing mild subarticular recess stenosis, disc extending to the neural foramina without evidence of impingement or significant stenosis. There is mild facet joint arthropathy with mild cellulitis. L2-L3: Moderate disc degeneration with annular disc bulge asymmetric to the left causing a mild left subarticular recess stenosis with disc extending into the neuroforamina causing a mild left stenosis without evidence of neural impingement. There is mild facet arthropathy with mild synovitis. L3-L4: Moderate disc degeneration with annular disc bulge asymmetric to the left causing a mild subarticular recess stenosis and mild spinal canal stenosis. There is disc extending to the neuroforamina causing mild bilateral neuroforaminal stenosis without evidence of neural impingement. There is mild facet joint arthropathy with mild synovitis. L4-L5: Mild disc degeneration with annular disc bulge causing a mild subarticular recess stenosis with disc extending into the neural foramina without evidence of impingement or significant stenosis. There is mild facet joint arthropathy with mild synovitis. L5-S1: Intervertebral disc is normal. There is mild facet arthropathy in length mild synovitis. IMPRESSION: 1. Findings concerning for a minimally displaced superior endplate fracture of the L5 vertebral body. 2. Moderate disc degeneration at L2-3 and L3-4 with mild disc degeneration at L1-L2 and L4-5 with annular disc bulging causing a mild subarticular recess stenosis without evidence of neural impingement. 3. There is mild spinal canal stenosis at L3-4. 4. There is a mild left L2-3, and mild bilateral L3-4 without evidence of neural impingement. 5. There is mild facet arthropathy with mild synovitis. 6. Intraspinous bursitis at L4-5 and L5-S1. 7. Moderate right and mild left sacroiliac joint arthropathy. 8. No evidence of infection, tumor or arachnoiditis. Electronically signed by: Celia Vivar MD 03/25/23 04:16 AM Pending Results Patient Have Any Pending Studies at Discharge: No Discharge Instructions Given to Patient (Per Discharging Provider) PLEASE REFER TO YOUR NEW MEDICATION LIST AND FOLLOW INSTRUCTIONS CAREFULLY. YOUR NEW MEDICATIONS INCLUDE: NORCO- as needed for severe pain LISINOPRIL- for blood pressure control PLEASE CALL YOUR PRIMARY CARE PHYSICIAN OR RETURN TO THE ER IF WITH WORSENING OF SYMPTOMS, INCLUDING back pain, leg pain, leg weakness/numbness, etc FOLLOW UP WITH PRIMARY CARE PHYSICIAN OUTLINED ABOVE. FOLLOW UP WITH DR. BAZZI AND DR. BANDA IN 1-2 WEEKS. Total Time Total Time Spent Total Time Spent (In Minutes): >30 minutes
--- NOTE | 2023-03-29 18:59 | Hospitalist Progress Note ---
Date of Service March 29, 2023 delayed entry date of service noted above Assessment & Plan (1) Lumbar radiculopathy: Plan: per admitting service notes with addendum: This is a 62yo F with PMH of hypertension, DM2 on oral medications, ADD, anxiety/mood disorder who presents with intractable pain of L leg. Intractable pain of L thigh Lumbar radiculopathy Lumbar radicular pain with evidence of a left lateral disc herniation at L2-3 as well as some foraminal stenosis at L3-4 potentially contributing to her left thigh region pain complaint of an acute fashion. Follows with Dr. Banda and history of back surgeries in the past. Currently wishing to defer for surgery till later this fall but significant left thigh pain with ambulation. Steroid held on admission as it has been ineffective at improving pain per patient Evaluated by pain management, who recommend spinal injection in clinic setting on Wednesday. Also started on gabapentin 300 mg at bedtime with plans to titrate up to BID or TID dosing over the next week Continue pain management with IV morphine as needed, oxycodone, lidocaine patch 03/29 for steroid injection today continue present PRN meds for pain Will need pain management recommendations regarding home pain meds, oxycodone not effective as per patient Abnormal UA, contaminated specimen Started on empiric Rocephin, follow urine culture and plan for 5-day abx course 03/29 no symptoms urine culture: negative Discontinued ceftriaxone Hypertension, markedly elevated upon arrival at the ER 2/2 pain but now normotensive Still not at goal Add lisinopril 5 mg daily PCP ff up in 1 week DM2 on oral medications, reasonable control as of remote hemoglobin A1c of 7.18 April 2020 Hx ADD, anxiety/mood disorder Chronic, at baseline plan of care discussed with patient all questions answered she is understanding, agreeable, comfortable with the plan of care Admission and Anticipated Discharge Date Admission Date: March 27, 2023 Subjective ff up for back pain, etc seen resting in bed, not in distress back pain adequately controlled awaiting steroid injection procedure no other new symptoms Review of Systems Review of Systems: all noted and negative except for above Physical Exam Physical Exam: General- oriented x 3, not in distress, speaks in sentences with no effort or accessory muscle use Eyes- anicteric Neck- no JVD Lungs- clear breath sounds bilaterally Heart- normal rate, regular rhythm; no murmurs Abdomen- normal bowel sounds, nondistended, soft, nontender Extremities- no pretibial edema, no calf tenderness Neuro- alert, oriented x 3; no gross focal neurologic deficits Skin- warm & dry Results & Data Results & Data Vital Signs (Past 12 Hours) Vital Signs Temp Pulse Pulse Resp BP Pulse Ox O2 Del Method 03/29/23 14:58 36.9 C 83 18 132/71 95 Room Air 03/29/23 12:27 36.4 C L 66 16 154/78 H 94 Room Air 03/29/23 11:30 36.8 C 65 16 151/80 H 95 Room Air 03/29/23 11:15 36.7 C 72 14 143/87 H 95 Room Air 03/29/23 11:05 65 12 142/90 H 96 Room Air 03/29/23 10:55 67 14 157/76 H 99 Nasal Cannula 03/29/23 10:45 36 C L 80 14 139/86 97 Nasal Cannula 03/29/23 09:50 36.6 C 65 65 18 159/78 H 98 Room Air 03/29/23 08:01 36.8 C 66 16 139/83 96 Room Air O2 Flow Rate 03/29/23 14:58 03/29/23 12:27 03/29/23 11:30 03/29/23 11:15 03/29/23 11:05 03/29/23 10:55 2 03/29/23 10:45 2 03/29/23 09:50 03/29/23 08:01 all noted and reviewed including below
== END 2023-03-29 17:16 | disposition home or self-care (01) | DRG 552 ==
LOC: EDINP 15:57 → ED 15:57 → 3N 03-25 04:35

== ENCOUNTER 2023-04-30 06:03 | Inpatient (IN) ==
--- NOTE | 2023-04-27 13:17 | Anesthesiology Consultation ---
Date of Service April 27, 2023 Assessment & Plan (1) Encounter for pre-operative examination: Chart Review Chart Review: Acceptable Risk for Surgery and Patient NOT seen in Pre Admission Testing - Check BSG AM DOS -Infectious Disease screening: Per PAT nursing assessment on 04/27/23. No known infectious disease contacts in past 10 days or current infectious disease symptoms. No recent travel outside the country. Pt seen by PCP 04/19/23= Patient seen for preop evaluation. Admitted [facility] in March 2023 due to left lateral disc herniation L2-3 and foraminal stenosis L3-4. Surgical intervention was recommended, but she couldn't proceed surgery at that time due to her work. Epidural injection was given, pain is manageable with dual action Advil. Patient is able to walk 2 blocks at a moderate pace. Patient's functional status is good. Patient has revised cardiac risk index score of 1 risk factor1.0% (95% CL: 0.51.4). Transforaminal Epidural Left L2-L3 L3-L4(Left) 03/29/23= Done under MAC History Surgery Operation Date: 04/30/23 12:25 Proposed Procedures p L2-L3 Decompression and Fusion, Possible L3-L4, Spinal Cord Monitoring - Darwin Banda DO Height/Weight Height: 5 ft 2 in Weight: 81.193 kg Allergies Allergy/AdvReac Type Severity Reaction Status Date / Time amoxicillin Allergy Intermediate RASH Verified 04/27/23 12:42 Sulfa (Sulfonamide Allergy Intermediate Rash Verified 04/27/23 12:42 Antibiotics) oxycodone AdvReac Intermediate N&V Verified 04/27/23 12:42 Medications Home Medications Medication Instructions Recorded Confirmed Last Taken amlodipine 10 mg tablet 10 mg PO QAM 03/24/23 04/27/23 03/24/23 bupropion HCl 150 mg 24 hr tablet, 150 mg PO QAM 03/24/23 04/27/23 03/24/23 extended release dextroamphetamine-amphetamine 10 10 mg PO QPM PRN ADHD SYMPTOMS 03/24/23 04/27/23 Unknown mg tablet dextroamphetamine-amphetamine ER 50 mg PO QAM 03/24/23 04/27/23 03/24/23 25 mg 24hr capsule,extend release diazepam 5 mg tablet 5 - 10 mg PO DAILY PRN SEVERE 03/24/23 04/27/23 Unknown ANXIETY escitalopram oxalate 20 mg tablet 20 mg PO QAM 03/24/23 04/27/23 03/24/23 glimepiride 2 mg tablet 2 mg PO QAM 03/24/23 04/27/23 03/24/23 Past Medical History Medical History (Updated 04/27/23 @ 13:21 by Kendra Geiger PA-C) ADHD Anxiety Depression Diabetes Dyslipidemia Hypertension Slow to wake up after anesthesia Past Surgical History Surgical History History of partial colectomy secondary to diverticulitis Hx of colonoscopy Hx of removal of cyst ear Hx of tonsillectomy S/P cervical spinal fusion 15 years ago, ROM wnl Social History Smoking Status: Never smoker Do You Dip or Chew Tobacco: No Hx Alcohol Use: Yes Alcohol type: beer and wine alcohol intake frequency: holidays/special occasions only Hx Substance Use: No substance use type: does not use Lab Results Anesthesia Preop Results Results Anesthesia Widget: WBC 9.05 K/ul (4.8-10.8) 04/08/23 Hgb 15.5 g/dl (12.0-16.0) 04/08/23 Hct 45.3 % (37.0-47.0) 04/08/23 Plt 283 K/uL (130-400) 04/08/23 Na 139 mmol/L (136-145) 04/08/23 K 4.7 mmol/L (3.5-5.1) 04/08/23 Cl 106 mmol/L (98-107) 04/08/23 CO2 26 mmol/L (21-32) 04/08/23 BUN 20 mg/dl (6-23) 04/08/23 Creat 1.18 mg/dl (0.6-1.2) 04/08/23 Glucose Level 167 mg/dl (70-99(Fasting)) H 04/08/23 PT 10.3 Seconds (9.0-12.0) 04/08/23 PTT 25.9 Seconds (21.0-31.0) 04/08/23 INR 0.9 (0.9-1.1) 04/08/23 HA1c 8.6 % (4.5-5.6) H 03/24/23 Urine Color Yellow 03/25/23 Urine Appearance Cloudy (Clear) A 03/25/23 Urine pH 5.5 (4.5-7.5) 03/25/23 Urine Specific [place] 1.026 (1.000-1.030) 03/25/23 Urine Protein Negative (Negative) 03/25/23 Urine Glucose (UA) Trace (Negative) H 03/25/23 Urine Ketones Negative (Negative) 03/25/23 Urine Blood Negative (Negative) 03/25/23 Urine Nitrite Negative (Negative) 03/25/23 Urine Bilirubin Negative (Negative) 03/25/23 Urine Urobilinogen Negative (Negative) 03/25/23 Urine Leukocyte Esterase 2+ (Negative) H 03/25/23 Urine WBC (Auto) >30 /hpf (0-5) H 03/25/23 Urine RBC (Auto) 5-10 /hpf (0-4) H 03/25/23 Urine Hyaline Casts (Auto) 0 /lpf (0-5) 03/25/23 Urine Epithelial Cells (Auto) >30 /lpf (0-5) H 03/25/23 Urine Bacteria (Auto) Negative (Negative) 03/25/23 Blood Type O Positive 04/08/23 Antibody Screen NEGATIVE 04/08/23 Testing Laboratory Results 04/08/23= URINE CULTURE: More than 3 types of organisms present, all low counts mixed probable skin jacqueline Electrocardiogram Date: 03/24/23 Sinus rhythm with PACs at [address] and T wave abnormality, consider inferior ischemia When compared EKG from February 07, 2013PVCs are now present per cardio (Reviewed by PCP at preop appt 04/19/23- "EKG reviewed w/ Dr. Martin -- Nonspecific ST/T wave abnormality seen with stress echo in 2014 and she had cardiac cath in 2014, normal coronary arteries. Denies any chest pain or SOB with exertion. No further cardiac testing required per Dr. Giordano per S phone notes) Chest X-Ray Date: 04/08/23 Findings: + NAD
[~2023-04-30 06:03] MED LIST: ACETAMINOPHEN 500 MG TAB PO SCH; CLINDAMYCIN/D5W 900 MG/50 ML BAG IV SCH; GABAPENTIN 600 MG DOSE PO SCH; LR 15ML/HR IV SCH
[2023-04-30] MEDS ORDERED: ceFAZolin 330 MG/ML 1 GM VIAL ONE (06:59)
[2023-04-30] MEDS ORDERED: BUPIVACAINE/EPINEPHRINE 0.25% 1:200,000 30 ML VIAL ONE (06:59)
[2023-04-30] MEDS ORDERED: PROPOFOL IV EMULSION 10 MG/ML 20 ML VIAL IV ONE (07:13)
[2023-04-30] MEDS ORDERED: LIDOCAINE 2% 2 ML VIAL/AMP(20MG/ML) INFIL ONE (07:13)
[2023-04-30] MEDS ORDERED: DEXAMETHASONE SOD INJ 4 MG/ML VIAL ONE (07:13)
[2023-04-30] MEDS ORDERED: ONDANSETRON INJ 2 MG/ML 2 ML VIAL ONE (07:13)
[2023-04-30] MEDS ORDERED: MIDAZOLAM HCL 1 MG/ML 2ML VIAL ONE (07:13)
[2023-04-30] MEDS ORDERED: ROCURONIUM BROMIDE 10 MG/ML 5 ML VIAL IV ONE (07:13)
[2023-04-30] MEDS ORDERED: fentaNYL citrate PF 100 MCG/2 ML VIAL ONE (07:13)
[2023-04-30] MEDS ORDERED: SUGAMMADEX SODIUM 200 MG/2 ML VIAL IV ONE (07:14)
[2023-04-30] MEDS ORDERED: ATROPINE SULFATE 0.1 MG/ML 10ML SYR IV PRN (07:19)
[2023-04-30] MEDS ORDERED: HYDROmorphone INJ 2 MG/ML SYR/VIAL IV PRN (07:19)
[2023-04-30] MEDS ORDERED: ePHEDrine sulfate 50 MG/ML AMP IV PRN (07:19)
[2023-04-30] MEDS ORDERED: PROMETHAZINE HCL 12.5 MG in SODIUM CHLORIDE 0.9% 50 ML IV PRN ×2 (07:19→12:03)
[2023-04-30] MEDS ORDERED: ONDANSETRON INJ 2 MG/ML 2 ML VIAL IV PRN ×2 (07:19→12:03)
--- NOTE | 2023-04-30 07:42 | History & Physical Bridge Note ---
Date of Service April 30, 2023 History & Physical Bridge Note I have examined the patient, reviewed the History & Physical and in the interval since the performance of the History & Physical I have noted the following changes of clinical significance: no changes noted
--- NOTE | 2023-04-30 07:44 | History & Physical Report ---
Date of Service April 30, 2023 Assessment & Plan (1) Lumbar radiculopathy: Plan: L2-L3 decompression fusion, possible L3-L4 History of Present Illness Chief Complaint: Back and leg pain Primary Care Provider: Mey Knapp DO This is a 62-year-old female well-known to me the presents with chronic per sistent back and leg pain and failing course of nonoperative care she is here for surgical invention. Allergies Allergy/AdvReac Type Severity Reaction Status Date / Time amoxicillin Allergy Intermediate RASH Verified 04/30/23 06:25 Sulfa (Sulfonamide Allergy Intermediate Rash Verified 04/30/23 06:25 Antibiotics) oxycodone AdvReac Intermediate N&V Verified 04/30/23 06:25 Home Medications Medication Instructions Recorded Confirmed Type amlodipine 10 mg tablet 10 mg PO QAM 03/24/23 04/30/23 History bupropion HCl 150 mg 24 hr tablet, 150 mg PO QAM 03/24/23 04/30/23 History extended release dextroamphetamine-amphetamine 10 10 mg PO QPM PRN ADHD SYMPTOMS 03/24/23 04/30/23 History mg tablet (Adderall) dextroamphetamine-amphetamine ER 50 mg PO QAM 03/24/23 04/30/23 History 25 mg 24hr capsule,extend release diazepam 5 mg tablet (Valium) 5 - 10 mg PO DAILY PRN SEVERE 03/24/23 04/30/23 History ANXIETY escitalopram oxalate 20 mg tablet 20 mg PO QAM 03/24/23 04/30/23 History glimepiride 2 mg tablet 2 mg PO QAM 03/24/23 04/30/23 History hydrochlorothiazide 12.5 mg tablet 12.5 mg PO QAM 04/30/23 04/30/23 History Past Med/Surg History Medical History ADHD Anxiety Depression Diabetes Dyslipidemia Hypertension Slow to wake up after anesthesia Surgical History History of partial colectomy secondary to diverticulitis Hx of colonoscopy Hx of removal of cyst ear Hx of tonsillectomy S/P cervical spinal fusion 15 years ago, ROM wnl Social History Smoking Status: Never smoker Tobacco Type: Cigarettes Second Hand Exposure: Yes (hx as child); Do You Dip or Chew Tobacco: No; Tobacco Cessation Education Requested by Patient: No Hx Alcohol Use: Yes Alcohol type: beer and wine Hx Substance Use: No Preferred Language: Faroese Communication Ability: Effective Hearing Ability: Normal Support Coordinator Required: No Beliefs That Will Affect Care: None Current Living Situation: Spouse Current Living Situation Comment: house 4 steps to enter current occupational status: employed Other Information That Helps Us Care for You: No Feels Safe at Home: Yes Safety Concerns: Feels Safe At This Time Assistive Devices: None Physical Exam Physical Exam: Patient is alert and oriented Heart regular rhythm Lungs clear Results & Data Results & Data Vital Signs (Past 12 Hours) Vital Signs Temp Pulse Resp BP Pulse Ox O2 Del Method 04/30/23 06:27 36.6 C 76 20 138/81 98 Room Air
--- NOTE | 2023-04-30 09:18 | Operative Report ---
Post Operative Report Pre & Post Diagnosis Operation Date: 04/30/23 07:45 Pre-Op Diagnosis: Intervertebral Disc Disorders with Radiculopathy Post-Op Diagnosis: Intervertebral Disc Disorders with Radiculopathy I identified the patient and participated in the time-out.: Yes Procedure Operation Date: 04/30/23 07:45 Actual Procedures #1 lumbar decompression bilateral medial facetectomies and foraminotomies L2-L3. #2 posterior spinal fusion L2-L3. #3 placement posterior instrumentation L2- L3. #4 interbody fusion L to L3. #5 placement of Spira 12 x 26 mm at L2-L3. #6 placement locally harvested morselized autograft in the posterior gutters. #7 placement I factor combined the test interbody space and posterior gutters. Surgeon Darwin Banda, V Belt Inspector Ryan Mohr Estimated Blood Loss 100 Findings Consistent with Post-Op Diagnosis Specimens None Indications This is a 62-year-old female who presents above-mentioned diagnosis and failing course of nonoperative care she is here for surgical invention. Description of Procedure Patient was met with identified informed consent obtained. Patient was then taken to the operative suite underwent patient placed in a prone position on the Abel table atop the Corky frame. All bony promises well-padded I suspected to ensure no external pressure placed upon the. This point the lumbar spine was prepped and draped in a sterile fashion. Sharp dissection with assistance of Bovie cautery to form down to and exposing the lamina transverse processes of L2-L3. From caudal cephalad fashion complete laminectomy L2 was performed including bilateral medial facetectomies and foraminotomies complete facetectomy on the left and removal of extraforaminal disc herniation. Pedicle screws then placed L2-L3 bilaterally with assistance of fluoroscopy and the properly sized shereen placed. By way of a trans foraminal approach on the left complete discectomy was performed endplates guided to subcortical mean bone and a 12 x 26 mm Spira cage with I factor tapped in position. The rods were then locked in final position bilaterally. The transverse processes of L2-L3 burred to subcortically bone. I factor amount of the test and locally harvested morselized allograft placed in the posterior gutters. 15 round LUIS MANUEL drain inserted. The incision was then closed with 1 Vicryl to fascia 2-0 Vicryl subcutaneously and 4 Monocryl for final skin closure. Steri-Strips sterile dressing placed. Patient awakened taken to PACU stable condition. Please note spinal cord monitoring was utilized at the procedure no changes noted. Lastly Ryan Mohr was present at the entire surgery and while the patient positioning complex portion of the surgery and final skin closure. I attest to the content of the Intraoperative Record and any orders documented therein. Any exceptions are noted below.
[2023-04-30] MEDS ORDERED: FLOSEAL HEMOSTATIC MATRIX 10ML TOP ONE (09:20)
[2023-04-30] MEDS: fentaNYL citrate PF 100 MCG/2 ML VIAL IV PRN ×2 (09:54→10:07)
--- NOTE | 2023-04-30 10:31 | Fluoroscopy Report ---
FL lumbar spine 2-3V CLINICAL HISTORY: L2-L3 DECOMPRESSION AND FUSION COMPARISON STUDY: MR lumbar spine 03/25/2023 FLUOROSCOPY TIME: 14.3 seconds FLUOROSCOPY IMAGES: T2 EXPOSURE DOSE: 12.28 mGy FINDINGS: Posterior interbody rods and screw fusion with discectomy hardware is noted at what is labe led the L2-L3 level. Exact numbering confirmation of the surgerized levels cannot be confirmed second talia to magnification of the images. No unexpected opaque foreign body identified. Note that the image s were submitted following completion of the surgery. IMPRESSION: Fluoroscopic assistance as above. ACT 112: Negative or not required by law. Electronically signed by: David Caraballo M.D. 04/30/2023 10:29 AM
--- NOTE | 2023-04-30 11:17 | Anesthesiology Progress Note ---
Date of Service April 30, 2023 Anesthesia Post Procedure Vital Signs Vital Signs: Temp Pulse Pulse Resp BP Pulse Ox O2 Del Method 04/30/23 10:00 67 14 128/88 100 Oxymask 04/30/23 09:50 68 14 145/72 H 100 Oxymask 04/30/23 10:30 69 16 127/73 98 Nasal Cannula 04/30/23 10:20 73 14 136/73 98 Nasal Cannula 04/30/23 10:10 68 19 119/76 100 Oxymask 04/30/23 09:40 74 16 117/73 100 Oxymask 04/30/23 09:39 36.2 C L 66 14 123/74 100 Oxymask 04/30/23 06:27 36.6 C 76 20 138/81 98 Room Air O2 Flow Rate 04/30/23 10:00 4 04/30/23 09:50 6 04/30/23 10:30 2 04/30/23 10:20 2 04/30/23 10:10 2 04/30/23 09:40 6 04/30/23 09:39 6 04/30/23 06:27 Pain Intensity Back: Pain Intensity: 5 Transfer of Care Handoff Completed per policy Notes Mental Status: alert / awake / arousable and participated in evaluation Patient Amnestic to Procedure: Yes Nausea / Vomiting: adequately controlled Pain: adequately controlled Airway Patency, RR, SpO2: stable & adequate BP & HR: stable & adequate Hydration State: stable & adequate Anesthetic Complications: no major complications apparent
[2023-04-30] MEDS ORDERED: LORazepam 2 MG/1 ML VIAL IV PRN (12:03)
[2023-04-30] MEDS ORDERED: LORazepam 0.5 MG TAB PO PRN (12:03)
[2023-04-30] MEDS ORDERED: ACETAMINOPHEN 500 MG TAB PO PRN (12:03)
[2023-04-30] MEDS ORDERED: METOCLOPRAMIDE HCL INJ 5 MG/ML 2 ML VIAL IV PRN (12:03)
[2023-04-30] MEDS ORDERED: FAMOTIDINE 20 MG TAB PO PRN (12:03)
[2023-04-30] MEDS ORDERED: DO NOT ADMINISTER PNEUMOCOCCAL VACCINE PRN (12:03)
[2023-04-30] MEDS ORDERED: SOD PHOSPHATE/SOD BIPHOSPHATE ENEMA 132 ML BTL PR PRN (12:03)
[2023-04-30] MEDS ORDERED: NALOXONE HCL 0.4 MG/1 ML VIAL/CARP IV PRN (12:03)
[2023-04-30] MEDS ORDERED: hydrOXYzine HCl 25 MG TAB PO PRN (12:03)
[2023-04-30] MEDS ORDERED: HYDROmorphone INJ 1 MG/ML SYRINGE IV PRN (12:03)
[2023-04-30] MEDS ORDERED: bisacodyL 10 MG SUPP PR PRN (12:03)
[2023-04-30] MEDS ORDERED: diphenhydrAMINE Capsule 25 MG CAP PO PRN (12:03)
[2023-04-30] MEDS ORDERED: ALUMINUM/MAGNESIUM SUSP 30 ML UDC PO PRN (12:03)
[2023-04-30] MEDS ORDERED: DO NOT ADMINISTER FLU VACCINE PRN (12:03)
[2023-04-30] MEDS ORDERED: HYDROmorphone INJ 0.5 MG/0.5 ML SYR IV PRN (12:03)
[2023-04-30] MEDS ORDERED: ACETAMINOPHEN 1,000 MG/100 ML VIAL IV PRN (12:03)
[2023-04-30] MEDS ORDERED: PHARMACY GLYCEMIC MGMT CONSULT PRN (12:27)
[2023-04-30] MEDS: LACTATED RINGER'S 1,000 ML IV SCH ×2 (13:35→19:33)
[2023-04-30] MEDS: traMADol HCL 50 MG TABLET PO PRN ×2 (13:35→19:38)
[2023-04-30] MEDS ORDERED: AMPHETAMINE ASP/SULF/DEXTRAMPH 10 MG TAB PO PRN (13:41)
[2023-04-30] MEDS ORDERED: LANTUS PER UNIT CHARGE SC ONE (14:00)
[2023-04-30] MEDS: INSULIN ASPART PER UNIT CHARGE SC SCH ×3 (14:07→21:08)
--- NOTE | 2023-04-30 14:15 | Hospitalist Consultation ---
Date of Consultation April 30, 2023 Assessment & Plan (1) Lumbar radiculopathy: POD#0 L2-L3 decompression and fusion by Dr. Banda Activity and wound care orders as per ortho Pain control with bowel regimen PT/OT Monitor H/H for acute blood loss anemia and transfuse blood products PRN EBL 100 cc (2) Diabetes: Hgb A1c 8.6 03/2023 Hold oral agents, Lantus and NovoLog per protocol while hospitalized, glycemic pharmacy consulted (3) Hypertension: Chronic, stable Continue amlodipine and HCTZ (4) ADHD: (5) Anxiety: (6) Depression: Chronic, stable Continue home meds DVT PROPHYLAXIS TEDs/SCDs as per spine Ortho Patient seen in collaboration with Dr. Day. Thank you for this consultation. We will follow the patient with you during their hospital stay. You can reach a member of the [facility] Hospitalist Team 08/02 via the [facility] Hospitalist role in [place] Text. Supervising Physician Co-Signing Physician Notes I have seen and discussed the case with the collaborating EXPLOSIVES WORKER I agree with the above H&P. I have reviewed and confirmed the patients medical history, the findings on physical examination, and the patients diagnosis and treatment plan with Love EXPLOSIVES WORKER and agree with the information documented. In short, Ms French is a 62 year old woman with past medical history notable for hypertension and DMTII who is now s/p L2-L3 decompression 04/30. Patient tolerated procedure well. VS stable on home medications for BP. Labs notable for hyperglycemia. Medicine on consult for patient with stable chronic comorbidities. Plan to continue home medications for blood pressure and hold oral hypoglycemics with pharm glycemic management for DM. Thank you for the consultation. History of Present Illness Reason for Consultation: Postop medical management Requesting Physician: Dr. Banda Attending Physician: Darwin Banda, DO History of Present Illness 62-year-old female with PMH DM type II, HTN, GERD, ADHD, anxiety, depression, and other problems listed below who is s/p L2-L3 decompression and fusion today by Dr. Dr. Banda. Postoperatively, the patient is doing well. She reports her pain is well controlled. Reports pain is radiating into the left leg similar to preoperatively. Denies numbness, tingling, weakness to lower extremities. No chest pain or shortness of breath. Denies lightheadedness and dizziness. No abdominal pain or nausea. She has not voided since surgery. Allergies Allergy/AdvReac Type Severity Reaction Status Date / Time amoxicillin Allergy Intermediate RASH Verified 04/30/23 06:25 Sulfa (Sulfonamide Allergy Intermediate Rash Verified 04/30/23 06:25 Antibiotics) oxycodone AdvReac Intermediate N&V Verified 04/30/23 06:25 Home Medications Medication Instructions Recorded Confirmed Type amlodipine 10 mg tablet 10 mg PO QAM 03/24/23 04/30/23 History bupropion HCl 150 mg 24 hr tablet, 150 mg PO QAM 03/24/23 04/30/23 History extended release dextroamphetamine-amphetamine 10 10 mg PO QPM PRN ADHD SYMPTOMS 03/24/23 04/30/23 History mg tablet (Adderall) dextroamphetamine-amphetamine ER 50 mg PO QAM 03/24/23 04/30/23 History 25 mg 24hr capsule,extend release diazepam 5 mg tablet (Valium) 5 - 10 mg PO DAILY PRN SEVERE 03/24/23 04/30/23 History ANXIETY glimepiride 2 mg tablet 2 mg PO QAM 03/24/23 04/30/23 History atorvastatin 10 mg tablet 10 mg PO DAILY 04/30/23 04/30/23 History hydrochlorothiazide 25 mg tablet 25 mg PO DAILY 04/30/23 04/30/23 History hydrocodone 5 mg-acetaminophen 325 1 tab PO Q6H PRN pain #30 tabs 04/30/23 04/30/23 Rx mg tablet tramadol 50 mg tablet 50 mg PO Q6H PRN pain, moderate 04/30/23 04/30/23 Rx #30 tabs Patient History Medical History ADHD Anxiety Depression Diabetes Dyslipidemia Hypertension Slow to wake up after anesthesia Surgical History History of partial colectomy secondary to diverticulitis Hx of colonoscopy Hx of removal of cyst ear Hx of tonsillectomy S/P cervical spinal fusion 15 years ago, ROM wnl Social History Smoking Status: Never smoker Tobacco Type: Cigarettes Second Hand Exposure: Yes (hx as child); Do You Dip or Chew Tobacco: No; Tobacco Cessation Education Requested by Patient: No Hx Alcohol Use: Yes Alcohol type: beer and wine Hx Substance Use: No Preferred Language: Andorran Communication Ability: Effective Hearing Ability: Normal Electronic News Gathering Editor Required: No Beliefs That Will Affect Care: None Current Living Situation: Spouse Current Living Situation Comment: house 4 steps to enter current occupational status: employed Other Information That Helps Us Care for You: No Feels Safe at Home: Yes Safety Concerns: Feels Safe At This Time Assistive Devices: Walker Review of Systems Review of Systems: ROS per HPI, all other systems reviewed and negative Physical Exam Constitutional: WD/WN, vitals as above Eyes: PERRL, conjunctivae normal, anicteric sclerae ENMT: external ear and nose normal, oropharynx normal Respiratory: normal respiratory effort, lungs clear to auscultation Cardiovascular: Rate/Rhythm: regular rate and regular rhythm Vessels: normal peripheral pulses Extremities: no edema Gastrointestinal (Abdomen): normal bowel sounds, soft, nontender, no hepatosplenomegaly Musculoskeletal: S/p back surgery, pedal pushes and pull strong bilaterally, drain in place draining bloody drainage Skin: no rashes, warm and dry Neurologic: PERRL, EOMI, accommodation nl, no face palsy, no dysarthria Psychiatric: A+Ox3, euthymic affect Results & Data Results & Data Vital Signs (Past 12 Hours) Vital Signs Temp Pulse Pulse Resp BP Pulse Ox O2 Del Method 04/30/23 13:39 36.5 C 75 16 126/70 97 Nasal Cannula 04/30/23 12:53 36.5 C 76 14 120/66 97 Nasal Cannula 04/30/23 12:15 36.6 C 72 14 128/75 95 Nasal Cannula 04/30/23 11:45 36.5 C 72 14 135/68 95 Room Air 04/30/23 11:15 80 18 131/79 98 Nasal Cannula 04/30/23 11:00 76 18 132/71 98 Nasal Cannula 04/30/23 10:00 67 14 128/88 100 Oxymask 04/30/23 09:50 68 14 145/72 H 100 Oxymask 04/30/23 11:30 36.3 C L 77 18 146/84 H 98 Nasal Cannula 04/30/23 10:45 77 20 139/75 98 Nasal Cannula 04/30/23 10:30 69 16 127/73 98 Nasal Cannula 04/30/23 10:20 73 14 136/73 98 Nasal Cannula 04/30/23 10:10 68 19 119/76 100 Oxymask 04/30/23 09:40 74 16 117/73 100 Oxymask 04/30/23 09:39 36.2 C L 66 14 123/74 100 Oxymask 04/30/23 06:27 36.6 C 76 20 138/81 98 Room Air O2 Flow Rate 04/30/23 13:39 2 04/30/23 12:53 2 04/30/23 12:15 2 04/30/23 11:45 04/30/23 11:15 2 04/30/23 11:00 2 04/30/23 10:00 4 04/30/23 09:50 6 04/30/23 11:30 2 04/30/23 10:45 2 04/30/23 10:30 2 04/30/23 10:20 2 04/30/23 10:10 2 04/30/23 09:40 6 04/30/23 09:39 6 04/30/23 06:27
--- NOTE | 2023-04-30 14:37 | Pharmacy Report ---
Pharmacy Glycemic Short Note 2 - Date of Service April 30, 2023 - Glycemic Short BSG Results (Last 24 hours): 04/30/23 04/30/23 04/30/23 06:26 09:43 11:54 POC Glucose 179 H 214 H 270 H OUTPATIENT ANTIDIABETIC REGIMEN: * glimepiride 2mg QAM * HbA1c 8.6% (03/24/23) ASSESSMENT: * Shanta is a 62 YOF admitted status post lumbar decompression/fusion. Pharmacy has been consulted for glycemic management. * She received IV dexamethasone 4mg preop this morning as well as Ancef * Pre-procedure BSG was elevated this AM will initiated Lantus at ~0.3 units/kg now and then daily while on steroids * Lunch time BSG elevated, Novolog at a weight based stress of 3 ordered. PLAN FOR INPATIENT GLYCEMIC CONTROL: * Hold outpatient oral diabetes medications * Basal insulin * Lantus 20 units daily * Bolus insulin * NovoLog per scale ACHS or Q6hrs while NPO * Goal Range: Low 110 mg/dL - High 140 mg/dL * Correction Factor: 25 mg/dL/unit * Nutritional / Prandial insulin per carb ratio of 1 unit per 9 grams CHO consumed
[2023-04-30] MEDS: ceFAZolin 2000MG 2,000 MG/15 ML SYR IV SCH (15:44)
[2023-04-30] MEDS ORDERED: INSULIN ASPART PER UNIT CHARGE SC SCH (16:30)
[2023-04-30] MEDS: HYDROCODONE/ACETAMOPHEN 5/325MG TAB PO PRN (16:45)
[2023-04-30] MEDS: DOCUSATE SODIUM/SENNA 50/8.6MG TAB PO SCH (19:38)
[2023-05-01] MEDS: ceFAZolin 2000MG 2,000 MG/15 ML SYR IV SCH (00:05)
[2023-05-01] MEDS: traMADol HCL 50 MG TABLET PO PRN (04:26)
[2023-05-01] MEDS: POLYETHYLENE (MIRALAX) 17 GM PACK PO SCH ×4 (05:03→20:24)
[2023-05-01] MEDS: HYDROCODONE/ACETAMOPHEN 5/325MG TAB PO PRN ×2 (07:39→21:51)
[2023-05-01] MEDS: amLODIPine BESYLATE 5 MG TAB PO SCH (07:40)
[2023-05-01] MEDS: dexAMETHasone 6 MG in SYRINGE 0 ML IV SCH (07:41)
[2023-05-01] MEDS: buPROPion XL 150 MG TABCR PO SCH (07:41)
[2023-05-01 08:03] LABS: Basophils # (auto) 0.02 K/uL (0.00-0.20); Basophils % (auto) 0.2 %; Eosinophils # (auto) 0.02 K/uL (0.00-0.50); Eosinophils % (auto) 0.2 %; Hematocrit (blood only) 32.5 % (37.0-47.0); Hemoglobin 11.6 g/dl (12.0-16.0); Immature Granulocytes # (auto) 0.04 K/uL (0.01-0.20); Immature Granulocytes % (auto) 0.3 %; Lymphocytes # (auto) 1.66 K/uL (1.20-3.40); Lymphocytes % (auto) 14.5 %; Mean Corpuscular Hemoglobin 31.4 pg (25.0-34.0); Mean Corpuscular Hgb Conc 35.7 g/dL (32.0-36.0); Mean Corpuscular Volume 87.8 fL (80.0-100.0); Mean Platelet Volume 11.2 fL (9.4-12.4); Monocytes # (auto) 0.82 K/uL (0.11-0.59); Monocytes % (auto) 7.2 %; Neutrophils # (auto) 8.89 K/uL (1.40-6.50); Neutrophils % (auto) 77.6 %; Platelet Count 209 K/uL (130-400); RDW Coefficient of Variation 12.4 % (11.5-14.5); RDW Standard Deviation 39.8 fL (36.4-46.3); White Blood Count 11.45 K/ul (4.8-10.8)
[2023-05-01 08:22] LABS: BUN Creatinine Ratio 17.1 (10-20); Calcium 9.1 mg/dl (8.6-10.3); Creatinine Clr Calc Pharmacy 61.6 ml/min; Est GFR (African American) 88.9 ml/min; Est GFR (Non-African American) 76.7 ml/min; Potassium 3.8 mmol/L (3.5-5.1)
[2023-05-01] MEDS: INSULIN ASPART PER UNIT CHARGE SC SCH ×5 (08:42→23:26)
[2023-05-01] MEDS: DEXTROAMPHETAMINE/AMPHETAMINE ER 10 MG CAP PO SCH (08:44)
[2023-05-01] MEDS: hydroCHLOROthiazide 25 MG TAB PO SCH (08:53)
[2023-05-01] MEDS: ATORVASTATIN 10 MG TAB PO SCH (08:53)
[2023-05-01] MEDS ORDERED: ESCITALOPRAM OXALATE 20 MG TAB PO SCH (09:00)
[2023-05-01] MEDS ORDERED: GLIMEPIRIDE 2 MG TAB PO SCH (09:00)
[2023-05-01] MEDS ORDERED: hydroCHLOROthiazide 25 MG TAB PO SCH (09:00)
[2023-05-01] MEDS ORDERED: LANTUS PER UNIT CHARGE SC SCH (09:00)
--- NOTE | 2023-05-01 09:43 | Hospitalist Progress Note ---
Date of Service May 01, 2023 Assessment & Plan (1) Lumbar radiculopathy: Plan: POD#1 L2-L3 decompression and fusion by Dr. Banda Activity and wound care orders as per ortho Pain control with bowel regimen PT/OT Monitor H/H for acute blood loss anemia and transfuse blood products PRN EBL 100 cc she is asking to shower, but would defer this to Dr. Banda with drain in place. (2) Diabetes: Plan: Hgb A1c 8.6 03/2023 inpatient BSG uncontrolled partly from steroids. Hold oral agents, Lantus and NovoLog per protocol while hospitalized, glycemic pharmacy consulted cont management per glycemic pharmacist. (3) Hypertension: Plan: Chronic, stable Continue amlodipine and HCTZ (4) ADHD: Plan: chronic, stable. Cont home meds. (5) Anxiety: (6) Depression: Plan: Chronic, stable Continue home meds DVT PROPHYLAXIS TEDs/SCDs as per spine Ortho Full Code Dispo- to home in 1-2 days/per Ortho I spent a total [id number] coordinating, documenting, and providing care for this patient excluding time spent in the performance of separately billed services Purvi Reis DO [facility] Hospitalist Admission and Anticipated Discharge Date Admission Date: April 30, 2023 Subjective 62 yo F s/p lumbar surgery yesterday some pain but this is well controlled hyperglycemia this afternoon with an increase in insulin ordered by glycemic pharmacist patient has no other symptoms at this time. Physical Exam Physical Exam: CONSTITUTIONAL: WNWD, vitals as above, generally well-appearing, NAD EYES: normal conjunctivae, no scleral icterus, ENT: external ear and nose normal, oropharynx clear, MMM NECK: trachea midline, RESPIRATORY: clear to auscultation bilaterally, no crackles, rales or wheezes, normal respiratory effort CARDIOVASCULAR: regular rate and rhythm, S1 and 2 heard without murmurs, gallops or rubs, no JVD, no peripheral edema CHEST: inspection of chest was normal GASTROINTESTINAL: soft, nontender, ND, no guarding MUSCULOSKELETAL: strength 5/5 throughout, head is normocephalic and atraumatic, neck supple, normal palpation of chest wall without tenderness SKIN: warm and dry, back incision covered with gauze that is c/d/i, LUIS MANUEL drain in place with red-tinged serosanguineous fluid NEUROLOGIC: CN 2-12 grossly intact, no sensory deficit, normal cognition, normal speech, no tremor PSYCHIATRIC: alert cooperative and oriented to person, place and time. Euthymic mood, makes good eye contact, language grossly intact, recent and remote memory grossly intact. Results & Data Results & Data Vital Signs (Past 12 Hours) Vital Signs Temp Pulse Pulse Resp BP Pulse Ox O2 Del Method 05/01/23 09:00 Room Air 05/01/23 07:52 37.2 C 91 H 18 132/69 93 Room Air 05/01/23 03:43 36.7 C 74 18 120/69 92 Room Air 04/30/23 22:10 36.6 C 73 18 128/81 92 Room Air Laboratory Results Short CBC 05/01/23 Range/Units 07:20 WBC 11.45 H (4.8-10.8) K/ul Hgb 11.6 L (12.0-16.0) g/dl Hct 32.5 L (37.0-47.0) % Plt Count 209 (130-400) K/uL BMP 05/01/23 07:20 Sodium 136 Potassium 3.8 Chloride 103 Carbon Dioxide 28 BUN 14 Creatinine 0.82 Glucose 142 H Calcium 9.1 Medications Administered Current Inpatient Medications Acetaminophen (Acetaminophen 500 Mg Tab) 1,000 mg PO Q8H PRN PRN Reason: MILD Pain Scale 1,2,3 & Pre PT Stop: 05/30/23 12:02 Hydrocodone Bitart/Acetaminophen (Hydrocodone/Acetamophen 5/325mg Tab) 1 - 2 tab PO Q4H PRN PRN Reason: Pain & Pre PT Stop: 05/14/23 12:02 Last Admin: 05/01/23 07:39 Dose: 2 tab Al Hydrox/Mg Hydrox/Simethicone (Aluminum/Magnesium Susp 30 Ml Udc) 30 ml PO Q6H PRN PRN Reason: Dyspepsia Stop: 05/30/23 12:02 Amlodipine Besylate (Amlodipine Besylate 5 Mg Tab) 10 mg PO QAM MARU Stop: 05/31/23 08:59 Last Admin: 05/01/23 07:40 Dose: 10 mg Amphetamine/Dextroamphetamine (Amphetamine Asp/Sulf/Dextramph 10 Mg Tab) 10 mg PO QPM PRN PRN Reason: ADHD SYMPTOMS Stop: 05/14/23 13:40 Amphetamine/Dextroamphetamine (Dextroamphetamine/Amphetamine Er 10 Mg Cap) 50 mg PO QAM [facility] Stop: 05/15/23 08:59 Last Admin: 05/01/23 08:44 Dose: 50 mg Atorvastatin Calcium (Atorvastatin 10 Mg Tab) 10 mg PO DAILY [facility] Stop: 05/31/23 08:59 Last Admin: 05/01/23 08:53 Dose: 10 mg Bisacodyl (Bisacodyl 10 Mg Supp) 10 mg MN DAILY PRN PRN Reason: Constipation Stop: 05/30/23 12:02 Bupropion HCl (Bupropion Xl 150 Mg Tabcr) 150 mg PO QAM [facility] Stop: 05/31/23 08:59 Last Admin: 05/01/23 07:41 Dose: 150 mg Diphenhydramine HCl (Diphenhydramine Capsule 25 Mg Cap) 25 mg PO Q6H PRN PRN Reason: Allergic Rhinitis/Insomnia Stop: 05/30/23 12:02 Famotidine (Famotidine 20 Mg Tab) 20 mg PO Q12H PRN PRN Reason: Dyspepsia Stop: 05/30/23 12:02 Hydrochlorothiazide (Hydrochlorothiazide 25 Mg Tab) 25 mg PO DAILY [facility] Stop: 05/31/23 08:59 Last Admin: 05/01/23 08:53 Dose: 25 mg Hydromorphone HCl (Hydromorphone Inj 0.5 Mg/0.5 Ml Syr) 0.5 mg IV Q3H PRN PRN Reason: MODERATE Pain (Scale 4,5,6) & Pre PT Stop: 05/14/23 12:02 Hydromorphone HCl (Hydromorphone Inj 1 Mg/Ml Syringe) 1 mg IV Q3H PRN PRN Reason: SEVERE Pain (Scale 7,8,9,10) Stop: 05/14/23 12:02 Hydroxyzine HCl (Hydroxyzine Hcl 25 Mg Tab) 25 mg PO Q8H PRN PRN Reason: Anxiety Stop: 05/30/23 12:02 Promethazine HCl 12.5 mg/ (Sodium Chloride) 50.5 mls @ 202 mls/hr IV Q6H PRN PRN Reason: Nausea &/or Vomiting Stop: 05/30/23 12:02 Acetaminophen (Ofirmev) 1,000 mg in 100 mls @ 400 mls/hr IV Q8H PRN PRN Reason: Pain Rating 1-3 & Pre PT Stop: 05/01/23 12:04 Dexamethasone 6 mg/ Syringe 1.5 mls @ 1 mls/min IV DAILY [facility] Stop: 05/03/23 09:02 Last Admin: 05/01/23 07:41 Dose: 1 mls/min Influenza Virus Vaccine Quadrival (Do Not Administer Flu Vaccine) 1 each N/A PRN PRN PRN Reason: Notification Stop: 05/30/23 12:02 Insulin Aspart (Insulin Aspart Per Unit Charge) 0 units SC ACHS [facility] Stop: 05/30/23 13:59 Last Admin: 05/01/23 08:42 Dose: 2 units Insulin Glargine (Lantus Per Unit Charge) 20 units SC DAILY [facility] Stop: 05/31/23 08:59 Last Admin: 05/01/23 08:42 Dose: 20 units Lorazepam (Lorazepam 0.5 Mg Tab) 0.5 mg PO Q8H PRN PRN Reason: Sedation/Anxiety Stop: 05/30/23 12:02 Lorazepam (Lorazepam 2 Mg/1 Ml Vial) 0.5 mg IV Q8H PRN PRN Reason: Sedation/Anxiety Stop: 05/30/23 12:02 Magnesium Hydroxide (Magnesium Hydroxide Susp 30 Ml Udc) 30 ml PO Q24H PRN PRN Reason: Constipation Stop: 05/30/23 12:02 Metoclopramide HCl (Metoclopramide Hcl Inj 5 Mg/Ml 2 Ml Vial) 10 mg IV Q6H PRN PRN Reason: Nausea &/or Vomiting Stop: 05/30/23 12:02 Miscellaneous Information (Pharmacy Glycemic Mgmt Consult) 1 each N/A UD PRN; Protocol PRN Reason: Consult Stop: 05/30/23 12:26 Naloxone HCl (Naloxone Hcl 0.4 Mg/1 Ml Vial/Carp) 0.1 mg IV Q5M PRN PRN Reason: Oversedation/Resp depression Stop: 05/30/23 12:02 Ondansetron HCl (Ondansetron Inj 2 Mg/Ml 2 Ml Vial) 4 mg IV Q6H PRN PRN Reason: Nausea &/or Vomiting Stop: 05/30/23 12:02 Last Admin: 04/30/23 17:17 Dose: 4 mg Ondansetron HCl (Ondansetron 4 Mg Od Tab) 4 mg PO Q6H PRN PRN Reason: Nausea Stop: 05/30/23 12:02 Pneumococcal Polyvalent Vaccine (Do Not Administer Pneumococcal Vaccine) 1 each N/A PRN PRN PRN Reason: Notification Stop: 05/30/23 12:02 Polyethylene Glycol (Polyethylene (Miralax) 17 Gm Pack) 17 gm PO Q6 MARU Stop: 05/31/23 05:59 Last Admin: 05/01/23 05:03 Dose: 17 gm Senna/Docusate Sodium (Docusate Sodium/Senna 50/8.6mg Tab) 2 tab PO HS MARU Stop: 05/30/23 20:59 Last Admin: 04/30/23 19:38 Dose: 2 tab Sodium Biphosphate/Sodium Phosphate (Sod Phosphate/Sod Biphosphate Enema 132 Ml Btl) 132 ml MN ONE PRN PRN Reason: Constipation Stop: 05/30/23 12:02 Tramadol HCl (Tramadol Hcl 50 Mg Tablet) 50 - 100 mg PO Q4H PRN PRN Reason: Moderate-Severe pain & Pre PT Stop: 05/30/23 12:02 Last Admin: 05/01/23 04:26 Dose: 100 mg
--- NOTE | 2023-05-01 10:17 | Orthopedic Progress Note ---
Date of Service May 01, 2023 Assessment & Plan (1) Lumbar radiculopathy: Plan: This time we will continue physical therapy monitor her LUIS MANUEL output hopefully discharge home in the next few days. Admission and Anticipated Discharge Date Admission Date: April 30, 2023 Subjective Patient's back pain is controlled leg symptoms markedly improved Physical Exam Physical Exam: Patient is currently back in bed. EXTR strength testing. Appears comfortable. Results & Data Vital Signs (Past 12 Hours) Vital Signs Temp Pulse Pulse Resp BP Pulse Ox O2 Del Method 05/01/23 09:00 Room Air 05/01/23 07:52 37.2 C 91 H 18 132/69 93 Room Air 05/01/23 03:43 36.7 C 74 18 120/69 92 Room Air
[2023-05-01] MEDS: DOCUSATE SODIUM/SENNA 50/8.6MG TAB PO SCH (20:23)
[2023-05-01] MEDS: LANTUS PER UNIT CHARGE SC SCH (20:23)
[2023-05-02] MEDS: INSULIN ASPART PER UNIT CHARGE SC SCH ×5 (04:05→21:04)
[2023-05-02] MEDS: POLYETHYLENE (MIRALAX) 17 GM PACK PO SCH ×4 (05:24→22:44)
[2023-05-02 07:52] LABS: Hematocrit (blood only) 32.3 % (37.0-47.0); Hemoglobin 11.4 g/dl (12.0-16.0); Mean Corpuscular Hemoglobin 31.1 pg (25.0-34.0); Mean Corpuscular Hgb Conc 35.3 g/dL (32.0-36.0); Mean Corpuscular Volume 88.3 fL (80.0-100.0); Mean Platelet Volume 11.2 fL (9.4-12.4); Platelet Count 208 K/uL (130-400); RDW Coefficient of Variation 12.4 % (11.5-14.5); RDW Standard Deviation 39.9 fL (36.4-46.3); Red Blood Count 3.66 M/uL (4.20-5.40); White Blood Count 10.95 K/ul (4.8-10.8)
[2023-05-02 07:57] LABS: BUN Creatinine Ratio 18.8 (10-20); Calcium 9.2 mg/dl (8.6-10.3); Creatinine Clr Calc Pharmacy 63.1 ml/min; Est GFR (African American) 91.6 ml/min
[2023-05-02] MEDS: amLODIPine BESYLATE 5 MG TAB PO SCH (08:29)
[2023-05-02] MEDS: ATORVASTATIN 10 MG TAB PO SCH (08:29)
[2023-05-02] MEDS: hydroCHLOROthiazide 25 MG TAB PO SCH (08:29)
[2023-05-02] MEDS: buPROPion XL 150 MG TABCR PO SCH (08:30)
[2023-05-02] MEDS: DEXTROAMPHETAMINE/AMPHETAMINE ER 10 MG CAP PO SCH (08:38)
[2023-05-02] MEDS: NovoLIN-N (NPH) PER UNIT CHARGE SQ SCH (08:40)
[2023-05-02] MEDS: dexAMETHasone 6 MG in SYRINGE 0 ML IV SCH (08:44)
--- NOTE | 2023-05-02 11:26 | Orthopedic Progress Note ---
Date of Service May 02, 2023 Assessment & Plan (1) Lumbar disc herniation with radiculopathy: Plan: At this time continue physical therapy monitor her LUIS MANUEL output anticipate discharge home tomorrow. Admission and Anticipated Discharge Date Admission Date: April 30, 2023 Subjective Patient's back pain is controlled leg pain markedly improved. She tolerated physical therapy well yesterday. She continues to ambulate the halls. Physical Exam Physical Exam: On exam patient is currently in bed. Is good strength testing. Results & Data Vital Signs (Past 12 Hours) Vital Signs Temp Pulse Pulse Resp BP Pulse Ox O2 Del Method 05/02/23 08:00 36.8 C 75 18 127/69 96 Room Air 05/02/23 08:27 78 17 168/76 H 96 Room Air
--- NOTE | 2023-05-02 14:00 | Pharmacy Report ---
Pharmacy Glycemic Short Note 2 - Date of Service May 02, 2023 - Glycemic Short BSG Results (Last 24 hours): 05/01/23 05/01/23 05/01/23 16:31 16:40 20:09 Glucose POC Glucose 327 H* 335 H* 277 H 05/01/23 05/02/23 05/02/23 23:17 04:02 06:16 Glucose 185 H POC Glucose 183 H 98 05/02/23 05/02/23 08:14 11:51 Glucose POC Glucose 165 H 176 H OUTPATIENT ANTIDIABETIC REGIMEN: * glimepiride 2mg QAM * HbA1c 8.6% (03/24/23) ASSESSMENT: 05/02: * Patient received total 86 units of insulin yesterday: 25 units basal and 61 units bolus. * IV Dexamethasone caused steroid induced hyperglycemia yesterday- BSGs above 300 mg/dl at lunch and dinner * Fasting BSG today was 165 mg/dl. * Changed basal Lantus dose to NPH 0.4 units/kg give with IV Dex this morning. BSG pre-lunch was better controlled at 176 mg/dl today. * Novolog parameters tightened to greater than stress of 3. * Will continue with basal Lantus at HS on a scale- patient had received 5 units of Lantus last night. 04/30/23: * Shanta is a 62 YOF admitted status post lumbar decompression/fusion. Pharmacy has been consulted for glycemic management. * She received IV dexamethasone 4mg preop this morning as well as Ancef * Pre-procedure BSG was elevated this AM will initiated Lantus at ~0.3 units/kg now and then daily while on steroids * Lunch time BSG elevated, Novolog at a weight based stress of 3 ordered. PLAN FOR INPATIENT GLYCEMIC CONTROL: * Hold outpatient oral diabetes medications * Basal insulin * NPH 25 units SQ daily with IV Dex 6 mg * Lantus 5-10 units at HS based on BSG * Bolus insulin * NovoLog per scale ACHS or Q6hrs while NPO * Goal Range: Low 110 mg/dL - High 140 mg/dL * Correction Factor: 15 mg/dL/unit * Nutritional / Prandial insulin per carb ratio of 1 unit per 5 grams CHO consumed
[2023-05-02] MEDS: MAGNESIUM HYDROXIDE SUSP 30 ML UDC PO PRN (19:26)
[2023-05-02] MEDS: DOCUSATE SODIUM/SENNA 50/8.6MG TAB PO SCH (19:26)
[2023-05-02] MEDS: LANTUS PER UNIT CHARGE SC SCH (21:04)
[2023-05-03] MEDS: HYDROCODONE/ACETAMOPHEN 5/325MG TAB PO PRN ×2 (00:32→11:29)
[2023-05-03] MEDS: ONDANSETRON 4 MG OD TAB PO PRN ×2 (00:32→11:29)
[2023-05-03] MEDS: POLYETHYLENE (MIRALAX) 17 GM PACK PO SCH ×2 (06:35→13:03)
[2023-05-03] MEDS ORDERED: INSULIN ASPART PER UNIT CHARGE SC SCH ×2 (07:30→11:30)
[2023-05-03] MEDS: dexAMETHasone 6 MG in SYRINGE 0 ML IV SCH (08:54)
[2023-05-03] MEDS: MAGNESIUM HYDROXIDE SUSP 30 ML UDC PO PRN (08:54)
[2023-05-03] MEDS: hydroCHLOROthiazide 25 MG TAB PO SCH (08:54)
[2023-05-03] MEDS: DEXTROAMPHETAMINE/AMPHETAMINE ER 10 MG CAP PO SCH (08:54)
[2023-05-03] MEDS: buPROPion XL 150 MG TABCR PO SCH (08:55)
[2023-05-03] MEDS: amLODIPine BESYLATE 5 MG TAB PO SCH (08:55)
[2023-05-03] MEDS: ATORVASTATIN 10 MG TAB PO SCH (08:55)
[2023-05-03] MEDS: NovoLIN-N (NPH) PER UNIT CHARGE SQ SCH (10:03)
--- NOTE | 2023-05-03 10:30 | Discharge Summary ---
Date of Service May 03, 2023 Admission HPI Per Admitting Provider This is a 62-year-old female well-known to me the presents with chronic persistent back and leg pain and failing course of nonoperative care she is here for surgical invention. Principal Diagnosis Lumbar disc herniation with radiculopathy Discharge Data Allergies Allergy/AdvReac Type Severity Reaction Status Date / Time amoxicillin Allergy Intermediate RASH Verified 04/30/23 06:25 Sulfa (Sulfonamide Allergy Intermediate Rash Verified 04/30/23 06:25 Antibiotics) oxycodone AdvReac Intermediate N&V Verified 04/30/23 06:25 Consultations 04/30/23 12:03 Consult Hospitalist Routine Procedures Performed Operation Date: 04/30/23 07:45 Actual Procedures p L2-L3 Decompression and Fusion, Spinal Cord Monitoring(Not Applicable) - Darwin Banda DO Ordered Studies 04/30/23 07:45 FL lumbar spine 2-3V Routine Hospital Course (1) Lumbar disc herniation with radiculopathy: Patient with lumbar decompression fusion tolerated this well was taken to the orthopedic floor postoperative. Postop patient progressed appropriately. LUIS MANUEL drain decreased probably. Excellent strength testing. Pain well controlled. Separately discharged home. Discharge orders and instructions found in chart for further review. Total Time Total Time Spent Total Time Spent (In Minutes): 20 minutes Discharge Plan Discharge Items Patient Disposition: Home - Self-Care Reason For Visit: Intervertebral Disc Disorders with Radiculopathy Discharge Diagnosis: Lumbar spinal stenosis with disc herniation and radiculopathy Activity: As commented below Non-emergency contact: Primary Care Provider Call non-emergency contact if: you have any medication questions Follow-up/Referrals: Mey Knapp DO [Primary Care Provider] - Diet: Regular Addtl Attending Provider Instructions: ACTIVITY RECOMMENDATIONS: SELF CARE INSTRUCTIONS AFTER THORACIC/LUMBAR FUSIONS 1. You may walk to your tolerance. It is good exercise for your legs and back. Expect some back and intermittent leg aches and pains. 2. You may perform "counter-top" level activities (make a sandwich, orly with a project, etc.). 3. No bending or lifting of more than 10 pounds or back twisting of any nature (roll like a log when turning in bed). 4. You may ride in a car for 20-30 minutes at a time. No driving until after your first visit with your doctor. 5. Frequent changes of position and restricting sitting to 30 minutes at a time will help limit the amount of back spasms and stiffness you may experience. 6. You may discontinue the use of ambulatory aids (cane, crutches, etc.) once your strength and confidence allow. 7. You may rehabilitation inspector the shower and let water strike your incision when you arrive home at least once daily. Do not take a tub bath, sit in a hot tub or go into a swimming pool until after your first recheck in the office. SPECIAL CARE INSTRUCTIONS: VERY IMPORTANT TO READ AND REVIEW A. Your surgical incision has been closed with a cosmetic suture under the skin that will dissolve in about 6 weeks. In 14 days, you can use a pair of clean scissors and cut the suture that is left outside of the skin at the ends of your incision. 1. The small skin tapes can be removed 7 days after surgery if they have not fallen off by that point. 2. You may keep the wound open to air as much as possible to promote healing after post-op day number 5 unless told otherwise by your doctor. 3. If you think the wound looks like it is becoming infected (redness or worsening drainage) and/or you are experiencing fever, chill or worsening back pain and muscle spasms, contact the office so that we may e valuate you as soon as possible. B. Complications are uncommon, but please contact us if you have any signs or symptoms of: 1. wound infection (fever higher than 102.5 degrees F, redness, separation of wound, drainage, or increasing pain from the incision) 2. blood clots in legs (pain, swelling, redness and warmth in legs) 3. urinary tract infection (fever higher than 102.5 degrees F, burning upon urination or increased frequency of urination) 4. nerve problems (inability to walk on your toes or heels, numbness, loss of bowel or bladder control) 5. any other symptoms that concern you C. Please call the office at if you have any concerns or questions about your operation or recovery. D. No smoking! Smoking drastically decreases the chance of a solid fusion. E. Do not take any anti-inflammatory medications (Indocin, Advil, Motrin, Aspirin, Naprosyn, etc.) as these may inhibit the chance of a solid fusion. Tylenol is okay to take for pain. MANAGING PAIN AFTER SPINAL SURGERY 1. Narcotic medication is intended for short-term use and will be provided for surgical pain. Surgical pain usually lasts for a period of 4-6 weeks. Narcotic medication includes Percocet, Vicodin, Darvocet, Tylenol #3 or Lortab. 2. Longer-term pain is more appropriately treated with non-narcotic medication such as Tylenol ES. 3. Muscle spasm is not appropriately treated with narcotics. Muscle relaxers such as Soma, Flexeril or Skelaxin can be used along with Tylenol ES. 4. Remember that we all live with some "aches and pains". This is not unusual or uncommon after an injury or as we get older. a. Back pain is expected and may include muscle spasms for 4 to 6 weeks after surgery. The pain should gradually improve. If the pain worsens for no apparent reason, please contact the office. b. Intermittent leg pain may also be experienced and should not be concerned about unless it worsens for no apparent reason. If so, please contact the office. 5. We will provide appropriate medication within the normal guidelines of their prescribed use. We will also be very cautious and aware of potential abuse and extended duration of patients' medication needs. a. Pain medications are for your comfort and to assist with sleep and rest so that the tissue can heal. They are not provided in order to return to normal activity and should not be used through the day. To do so or worsening pain at night can result from ongoing tissue damage and development of tolerance to the prescribed medicine. 6. Please allow 2-3 days to process refills. Prescriptions will not be mailed but must be picked up at the office. FOLLOW UP VISIT: Keep your scheduled follow-up appointment. Any questions, please call the office at . Pending Studies at Discharge: No Stand-Alone Forms: My [employer], Smoking Cessation Medications and DC Order Prescriptions: New hydrocodone-acetaminophen 5-325 mg tablet 1 tab PO Q6H PRN (Reason: pain) Qty: 30 0RF tramadol 50 mg tablet 50 mg PO Q6H PRN (Reason: pain, moderate) Qty: 30 0RF Continued dextroamphetamine-amphetamine [Adderall] 10 mg tablet 10 mg PO QPM PRN (Reason: ADHD SYMPTOMS) glimepiride 2 mg tablet 2 mg PO QAM amlodipine 10 mg tablet 10 mg PO QAM diazepam [Valium] 5 mg tablet 5 - 10 mg PO DAILY PRN (Reason: SEVERE ANXIETY) Patient Comments: rarely takes dextroamphetamine-amphetamine 25 mg capsule,extended release 24hr 50 mg PO QAM bupropion HCl 150 mg tablet extended release 24 hr 150 mg PO QAM atorvastatin 10 mg tablet 10 mg PO DAILY Discontinued hydrochlorothiazide 25 mg tablet 25 mg PO DAILY Discharge Orders: Discharge Order (Routine); Ordered 05/03/23 Ordered By: Darwin Banda Admission Data Admit Date/Time: 04/30/23 09:21 Attending Provider: Darwin Banda Admit Provider: Darwin Banda Primary Care Provider: Mey Knapp
== END 2023-05-03 13:03 | disposition home or self-care (01) | DRG 455 ==
LOC: ASU 06:03 → 3N 09:21